=== PATIENT | female | born 1965 | race Caucasian/White ===

== ENCOUNTER 2019-03-07 14:02 | Inpatient (IN) ==
--- NOTE | 2019-03-07 14:20 | Emergency Department Note ---
Disposition Clinical Impression: Colitis, PRESTON (acute kidney injury), Hypokalemia Disposition: Admitted As Inpatient Condition: Good Time of Disposition: 22:25 General Adult HPI - General Chief complaint: ED General Medical Stated complaint: "bladder spasms" Time Seen by Provider: 03/07/19 14:18 Source: patient Limitations: no limitations Nursing Notes Reviewed: Yes Vital Signs Reviewed: Yes - History of Present Illness HPI Narrative: 53-year-old female past medical history of opiate addiction, withdrawal, m ultiple UTIs presenting for 2 days of dark colored urine, and bladder spasms. Patient states she has been feeling poorly since Thursday last night developed dark colored urine with bladder spasms beginning this morning. Patient states the past spasms are 10 out of 10 on the pain scale sharp and stabbing in nature, nonradiating. Patient states she has had no fevers chills, no chest pain or shortness of breath, no neck or back pain. No paresthesias no difficulty with ambulation. No other concerns or clicks at this time. Onset (ago): day(s) Pain Severity: severe Pain Scale: 10 Quality: stabbing, sharp Consistency: constant Associated symptoms: Reports: loss of appetite, malaise, nausea/vomiting Treatments Prior to Arrival: none - Related Data Home Medications Medication Instructions Recorded Confirmed Benztropine [Cogentin] 1 mg PO HS 02/09/16 03/05/19 Gabapentin [Neurontin] 800 mg PO QID 02/09/16 03/05/19 Pantoprazole Sodium [Protonix] 40 mg PO DAILY 02/09/16 03/05/19 Paroxetine [Paxil] 20 mg PO DAILY 02/09/16 03/05/19 Quetiapine Fumarate [Seroquel] 600 mg PO HS 02/09/16 03/05/19 cloNIDine HCl [CloNIDine HCl] 0.1 mg PO DAILY 02/09/16 03/05/19 Albuterol Sulfate [Proair Hfa] 2 puff IH Q6H PRN 11/29/16 03/05/19 Aspirin [Lo-Dose Aspirin EC] 81 mg PO DAILY 12/13/17 03/05/19 Buprenorphine HCl/Naloxone HCl 2 each SL DAILY 06/05/18 03/05/19 [Zubsolv 8.6-2.1 mg Tablet Sl] Previous Rx's Medication Instructions Recorded Sucralfate [Carafate] 1 gm PO QIDAC #40 tablet 09/04/18 Metaxalone [Skelaxin] 800 mg PO TID #12 tablet 12/14/18 Ondansetron ODT [Zofran ODT] 4 mg SL Q8HR #14 tab.rapdis 03/04/19 cephALEXin [Keflex] 500 mg PO QID #40 capsule 03/05/19 Allergies Allergy/AdvReac Type Severity Reaction Status Date / Time nalbuphine [From Nubain] Allergy Severe Difficulty Verified 12/13/18 15:18 Breathing Amoxicillin Allergy Hives Verified 12/13/18 15:18 butorphanol [From Stadol] Allergy Difficulty Verified 12/13/18 15:18 Breathing Hyoscyamine [From Levsin] Allergy Difficulty Verified 12/13/18 15:18 Breathing ibuprofen Allergy Difficulty Verified 12/13/18 15:18 Breathing ketorolac [From Toradol] Allergy Difficulty Verified 12/13/18 15:18 Breathing lamotrigine [From Lamictal] Allergy Difficulty Verified 12/13/18 15:18 Breathing meperidine [From Demerol] Allergy Difficulty Verified 12/13/18 15:18 Breathing Review of Systems: *See History of Present Illness for more detail Constitutional: Denies: fever, chills Cardiovascular: Denies: chest pain Respiratory: Denies: dyspnea, cough, hemoptysis Gastrointestinal: Admits to abdominal pain and nausea. Denies: vomiting, diarrhea, constipation, hematemesis, melena, hematochezia Genitourinary: Admits to dark colored urine Musculoskeletal: Denies: back pain, neck pain Integumentary: Denies: rash Neurological: Admits to weakness, generalized malaise and lightheadedness. Denies: headache, numbness, paresthesias, difficulty with ambulation. Endocrine: Admits: fatigue All systems ED: reviewed and negative except as stated. 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 Anterior neck is supple without swe lling. *Chest: Symmetric chest wall rise *Heart: Cardiac rhythm and rate are regular with S1 and S2 , no S3 or S4 appreciated, no murmurs, gallops, rubs, or clicks. *Lungs: Lungs are clear to auscultation bilaterally, without accessory muscle use or prolonged expiratory phase. No wheezes, rhonchi or stridor appreciated. Abdomen: Patient's abdomen is exquisitely and diffusely tender to palpation patient is voluntarily guarding. Extremities: Normal capillary refill without evidence of pedal edema, joint swelling or erythema. Pulses/motor intact in all 4 extremities. Psychiatric exam: Patient displays a normal affect and mood for the environment. No overt signs of hallucination. Integumentary: warm, dry, intact, normal color. No rash, cyanosis, diaphoresis, erythema, or pallor - General Limitations: no limitations General appearance: alert, in no apparent distress Course Course Narrative: CT scan abdomen and pelvis, abdominal labs, urinalysis Zofran and Dilaudid and IV fluids for management of patient discomfort. - Reevaluation(s) Reevaluation #1: Patient found to have colitis on CT scan imaging rule out metronidazole on top of the Keflex the patient has been at home for UTI for further coverage. We will re-dose hydromorphone as needed. Vital Signs Temperature 98.2 F 03/07/19 14:07 Pulse Rate 111 03/07/19 14:07 Respiratory Rate 16 03/07/19 14:07 Blood Pressure 109/72 03/07/19 14:07 O2 Sat by Pulse Oximetry 93 03/07/19 14:07 Temperature 99.2 F 03/07/19 20:06 Pulse Rate 77 03/07/19 20:06 Respiratory Rate 17 03/07/19 20:06 Blood Pressure 139/79 03/07/19 20:06 O2 Sat by Pulse Oximetry 93 03/07/19 20:06 Oxygen Delivery Oxygen Delivery Room Air Medical Decision Making - MDM Narrative Medical decision making narrative: Patient with colitis on CT imaging as well as acute kidney injury on laboratory analysis. Otherwise unremarkable workup. Patient be [facility] medicine [facility] for further evaluation and management. Patient and at bedside verbalizes her understanding and agreement with this plan. Patient's hemodynamics were stable time of admission. - Lab Data Lab results reviewed: Yes I reviewed the patient's lab results. Result diagrams: 03/07/19 14:55 03/07/19 14:55 Lab Results 03/07/19 03/07/19 03/07/19 Range/Units 14:55 14:55 15:21 WBC 10.1 (4.3-11.1) K/mcL RBC 5.08 H (3.82-4.97) M/mcL Hgb 15.8 H (11.5-15.4) g/dL Hct 48.5 H (35.3-44.9) % MCV 95.5 (83.0-100.0) fL MCH 31.1 (28.0-33.3) pg MCHC 32.6 (31.6-35.5) g/dL RDW 13.4 (11.5-14.5) % Plt Count 331 (140-400) K/mcL MPV 9.3 L (9.4-12.4) fL Immature Gran % 0.3 (0-4) % Seg Neutrophils % 66.5 % Lymphocytes % 17.7 % Monocytes % 13.8 % Eosinophils % 1.1 % Basophils % 0.6 % Neutrophils # 6.8 (1.6-8.9) K/mcL Lymphocytes # 1.8 (0.6-4.6) K/mcL Monocytes # 1.4 H (0.0-1.3) K/mcL Eosinophils # 0.1 (0.0-0.6) K/mcL Basophils # 0.1 (0.0-0.2) K/mcL Sodium 140 (136-145) mEq/L Potassium 3.1 L (3.5-5.1) mEq/L Chloride 104 (98-107) mEq/L Carbon Dioxide 24 (23-29) mEq/L BUN 18 (6-20) mg/dL Creatinine 1.79 H (0.60-1.20) mg/dL Est GFR ( Amer) 36 L (> 60) Est GFR (Non-Af Amer) 30 L (> 60) BUN/Creatinine Ratio 10 (6-26) Glucose 109 H (70-105) mg/dL Calculated Osmolality 292 (280-300) Lactic Acid (0.5-2.2) mmol/L Calcium 9.3 (8.6-10.3) mg/dL Magnesium 1.9 (1.6-2.6) mg/dL Total Bilirubin 0.3 (0.3-1.0) mg/dL Direct Bilirubin 0.1 (0.0-0.2) mg/dL Indirect Bilirubin 0.2 (0.0-1.2) mg/dL AST 17 (13-39) Units/L ALT 9 (7-52) Units/L Alkaline Phosphatase 141 H (34-104) Units/L Lactate Dehydrogenase 200 (140-271) Units/L Creatine Kinase 22 L (30-223) Units/L Serum Total Protein 6.5 (6.4-8.9) g/dL Albumin 3.8 (3.5-5.7) g/dL Globulin 2.7 (2.4-3.5) g/dL Albumin/Globulin Ratio 1.4 (1.1-2.2) Lipase 7 L (11-82) Units/L Urine Color [place] A (Yellow) Urine Clarity Cloudy A (Clear) Urine pH TNP Ur Specific [place] TNP Urine Protein TNP Urine Glucose (UA) TNP Urine Ketones TNP Urine Blood TNP Urine Nitrite TNP Urine Bilirubin TNP Urine Urobilinogen TNP Ur Leukocyte Esterase TNP Urine Microscopic RBC TNTC H (0-3) per hpf Urine Microscopic WBC 5-15 H (0-3) per hpf Ur Squamous Epith Cells Few (None-Few) per lpf Urine Bacteria Few (None-Few) per hpf Urine Yeast Many H (None Seen) per hpf Ur Culture Indicated? YES A (NO) Urine Osmolality (300-1090) mOsm/kg Urine Sodium mEq/L Urine Potassium mEq/L Urine Chloride mEq/L Urine Opiates Screen (Hdytmk=555) ng/mL Ur Buprenorphine Scrn (Cutoff=5) ng/mL Ur Barbiturates Screen (Aqbtye=098) ng/mL Ur Phencyclidine Scrn (Cutoff=25) ng/mL Ur Amphetamines Screen (Owktpt=5548) ng/mL U Benzodiazepines Scrn (Hhchaz=421) ng/mL Urine Cocaine Screen (Cutoff= 300) ng/mL U Marijuana (THC) Screen (Cutoff = 50) ng/mL Ur Drug Screen Interp 03/07/19 03/07/19 03/07/19 Range/Units 15:21 15:21 15:21 WBC (4.3-11.1) K/mcL RBC (3.82-4.97) M/mcL Hgb (11.5-15.4) g/dL Hct (35.3-44.9) % MCV (83.0-100.0) fL MCH (28.0-33.3) pg MCHC (31.6-35.5) g/dL RDW (11.5-14.5) % Plt Count (140-400) K/mcL MPV (9.4-12.4) fL Immature Gran % (0-4) % Seg Neutrophils % % Lymphocytes % % Monocytes % % Eosinophils % % Basophils % % Neutrophils # (1.6-8.9) K/mcL Lymphocytes # (0.6-4.6) K/mcL Monocytes # (0.0-1.3) K/mcL Eosinophils # (0.0-0.6) K/mcL Basophils # (0.0-0.2) K/mcL Sodium (136-145) mEq/L Potassium (3.5-5.1) mEq/L Chloride (98-107) mEq/L Carbon Dioxide (23-29) mEq/L BUN (6-20) mg/dL Creatinine (0.60-1.20) mg/dL Est GFR ( Amer) (> 60) Est GFR (Non-Af Amer) (> 60) BUN/Creatinine Ratio (6-26) Glucose (70-105) mg/dL Calculated Osmolality (280-300) Lactic Acid (0.5-2.2) mmol/L Calcium (8.6-10.3) mg/dL Magnesium (1.6-2.6) mg/dL Total Bilirubin (0.3-1.0) mg/dL Direct Bilirubin (0.0-0.2) mg/dL Indirect Bilirubin (0.0-1.2) mg/dL AST (13-39) Units/L ALT (7-52) Units/L Alkaline Phosphatase (34-104) Units/L Lactate Dehydrogenase (140-271) Units/L Creatine Kinase (30-223) Units/L Serum Total Protein (6.4-8.9) g/dL Albumin (3.5-5.7) g/dL Globulin (2.4-3.5) g/dL Albumin/Globulin Ratio (1.1-2.2) Lipase (11-82) Units/L Urine Color (Yellow) Urine Clarity (Clear) Urine pH Ur Specific [place] Urine Protein Urine Glucose (UA) Urine Ketones Urine Blood Urine Nitrite Urine Bilirubin Urine Urobilinogen Ur Leukocyte Esterase Urine Microscopic RBC (0-3) per hpf Urine Microscopic WBC (0-3) per hpf Ur Squamous Epith Cells (None-Few) per lpf Urine Bacteria (None-Few) per hpf Urine Yeast (None Seen) per hpf Ur Culture Indicated? (NO) Urine Osmolality 310 (300-1090) mOsm/kg Urine Sodium 55.3 mEq/L Urine Potassium 37.3 mEq/L Urine Chloride 49 mEq/L Urine Opiates Screen Positive H (Afmtjz=080) ng/mL Ur Buprenorphine Scrn Positive H (Cutoff=5) ng/mL Ur Barbiturates Screen Negative (Fwipai=197) ng/mL Ur Phencyclidine Scrn Negative (Cutoff=25) ng/mL Ur Amphetamines Screen Negative (Bodsws=7349) ng/mL U Benzodiazepines Scrn Negative (Ihhsgz=404) ng/mL Urine Cocaine Screen Negative (Cutoff= 300) ng/mL U Marijuana (THC) Screen Negative (Cutoff = 50) ng/mL Ur Drug Screen Interp See Below 03/07/19 Range/Units 16:40 WBC (4.3-11.1) K/mcL RBC (3.82-4.97) M/mcL Hgb (11.5-15.4) g/dL Hct (35.3-44.9) % MCV (83.0-100.0) fL MCH (28.0-33.3) pg MCHC (31.6-35.5) g/dL RDW (11.5-14.5) % Plt Count (140-400) K/mcL MPV (9.4-12.4) fL Immature Gran % (0-4) % Seg Neutrophils % % Lymphocytes % % Monocytes % % Eosinophils % % Basophils % % Neutrophils # (1.6-8.9) K/mcL Lymphocytes # (0.6-4.6) K/mcL Monocytes # (0.0-1.3) K/mcL Eosinophils # (0.0-0.6) K/mcL Basophils # (0.0-0.2) K/mcL Sodium (136-145) mEq/L Potassium (3.5-5.1) mEq/L Chloride (98-107) mEq/L Carbon Dioxide (23-29) mEq/L BUN (6-20) mg/dL Creatinine (0.60-1.20) mg/dL Est GFR ( Amer) (> 60) Est GFR (Non-Af Amer) (> 60) BUN/Creatinine Ratio (6-26) Glucose (70-105) mg/dL Calculated Osmolality (280-300) Lactic Acid 1.0 (0.5-2.2) mmol/L Calcium (8.6-10.3) mg/dL Magnesium (1.6-2.6) mg/dL Total Bilirubin (0.3-1.0) mg/dL Direct Bilirubin (0.0-0.2) mg/dL Indirect Bilirubin (0.0-1.2) mg/dL AST (13-39) Units/L ALT (7-52) Units/L Alkaline Phosphatase (34-104) Units/L Lactate Dehydrogenase (140-271) Units/L Creatine Kinase (30-223) Units/L Serum Total Protein (6.4-8.9) g/dL Albumin (3.5-5.7) g/dL Globulin (2.4-3.5) g/dL Albumin/Globulin Ratio (1.1-2.2) Lipase (11-82) Units/L Urine Color (Yellow) Urine Clarity (Clear) Urine pH Ur Specific [place] Urine Protein Urine Glucose (UA) Urine Ketones Urine Blood Urine Nitrite Urine Bilirubin Urine Urobilinogen Ur Leukocyte Esterase Urine Microscopic RBC (0-3) per hpf Urine Microscopic WBC (0-3) per hpf Ur Squamous Epith Cells (None-Few) per lpf Urine Bacteria (None-Few) per hpf Urine Yeast (None Seen) per hpf Ur Culture Indicated? (NO) Urine Osmolality (300-1090) mOsm/kg Urine Sodium mEq/L Urine Potassium mEq/L Urine Chloride mEq/L Urine Opiates Screen (Kjtgsw=144) ng/mL Ur Buprenorphine Scrn (Cutoff=5) ng/mL Ur Barbiturates Screen (Wmsujy=599) ng/mL Ur Phencyclidine Scrn (Cutoff=25) ng/mL Ur Amphetamines Screen (Nkgskr=9673) ng/mL U Benzodiazepines Scrn (Icfbrs=219) ng/mL Urine Cocaine Screen (Cutoff= 300) ng/mL U Marijuana (THC) Screen (Cutoff = 50) ng/mL Ur Drug Screen Interp - Radiology Data Radiology results reviewed: Yes I reviewed the patient's radiology results. Abdomen/Pelvis CT 03/07/19 14:41 IMPRESSION: Mild circumferential wall thickening within the proximal 2/3 of the colon-new over the past 3 days. Mild infectious or inflammatory colitis might be considered clinically. Few mild to moderately distended loops of proximal small bowel within the left upper quadrant with some air-fluid level but no wall thickening. This could represent nonobstructive ileus or enteritis. D/ / Ac Santiago MD / Ac Santiago MD Interpreting Provider: Ac Santiago MD - EKG Data EKG #1 EKG attestation: Yes I reviewed and interpreted this EKG. EKG results narrative: Patient EKG shows sinus rhythm with a heart of 70 bpm, MN interval 169 ms, QR scientologist of 86 ms, QT/QTc interval 398/454 ms respectively. There are no significant ST segment elevations, depressions, pathologic Q waves, abnormal T- wave inversions, nor any other signs of acute ischemic change. EKG performed today is generally consistent with prior EKG performed on 11/09/2018.
[2019-03-07] MEDS ORDERED: Ondansetron 4 MG/2 ML VIAL IVP STA (14:44)
[2019-03-07] MEDS ORDERED: 0.9 % Sodium Chloride 1,000 ML IVC ONE (14:45)
[2019-03-07] MEDS ORDERED: *HR* HYDROmorphone (PF) 1 MG/ML SYRINGE IVP ONE ×2 (14:45→16:40)
[2019-03-07 15:34] LABS: Basophils # 0.1 K/mcL (0.0-0.2); Basophils % 0.6 %; Eosinophils # 0.1 K/mcL (0.0-0.6); Eosinophils % 1.1 %; Hematocrit 48.5 % (35.3-44.9); Hemoglobin 15.8 g/dL (11.5-15.4); Immature Granulocytes % 0.3 % (0-4); Lymphocytes # 1.8 K/mcL (0.6-4.6); Lymphocytes % 17.7 %; Mean Corpuscular HGB Conc 32.6 g/dL (31.6-35.5); Mean Corpuscular Hemoglobin 31.1 pg (28.0-33.3); Mean Corpuscular Volume 95.5 fL (83.0-100.0); Mean Platelet Volume 9.3 fL (9.4-12.4); Monocytes # 1.4 K/mcL (0.0-1.3); Monocytes % 13.8 %; Neutrophils # 6.8 K/mcL (1.6-8.9); Platelet Count 331 K/mcL (140-400); Red Blood Count 5.08 M/mcL (3.82-4.97); Red Cell Distribution Width 13.4 % (11.5-14.5); Segmented Neutrophils % 66.5 %; White Blood Count 10.1 K/mcL (4.3-11.1)
[2019-03-07 16:05] LABS: Albumin 3.8 g/dL (3.5-5.7); Albumin/Globulin Ratio 1.4 (1.1-2.2); Bilirubin,Direct 0.1 mg/dL (0.0-0.2); Bilirubin,Indirect 0.2 mg/dL (0.0-1.2); Bilirubin,Total 0.3 mg/dL (0.3-1.0); Calcium 9.3 mg/dL (8.6-10.3); Globulin 2.7 g/dL (2.4-3.5); Potassium 3.1 mEq/L (3.5-5.1); Total Protein 6.5 g/dL (6.4-8.9)
[2019-03-07] MEDS ORDERED: MetroNIDAZOLE 500 MG/100 ML 500 MG/100 ML BAG IVPB ONE (16:26)
[2019-03-07 16:59] LABS: Clarity,Urine Cloudy (Clear)
[2019-03-07 17:01] LABS: Color,Urine Orange (Yellow)
[2019-03-07 17:03] LABS: RBC,Urine TNTC per hpf (0-3)
[2019-03-07 17:04] LABS: Bacteria,Urine Few per hpf (None-Few); Squamous Epithelial Cell,Urine Few per lpf (None-Few); Yeast,Urine Many per hpf (None Seen)
[2019-03-07] MEDS ORDERED: Naloxone 0.4 MG/ML INJ IVP PRN ×2 (17:38→18:01)
--- NOTE | 2019-03-07 18:02 | Emergency Department Note ---
Disposition Clinical Impression: Colitis, PRESTON (acute kidney injury), Hypokalemia Disposition: Admitted As Inpatient Condition: Good Forms: ED Satisfaction Letter, Work/School Release Time of Disposition: 18:01 General Adult HPI - General Chief complaint: ED General Medical Stated complaint: "bladder spasms" Time Seen by Provider: 03/07/19 14:18 Source: patient Limitations: no limitations - History of Present Illness Pain Scale: 0 - Related Data Home Medications Medication Instructions Recorded Confirmed Benztropine [Cogentin] 1 mg PO HS 02/09/16 03/05/19 Gabapentin [Neurontin] 800 mg PO QID 02/09/16 03/05/19 Pantoprazole Sodium [Protonix] 40 mg PO DAILY 02/09/16 03/05/19 Paroxetine [Paxil] 20 mg PO DAILY 02/09/16 03/05/19 Quetiapine Fumarate [Seroquel] 600 mg PO HS 02/09/16 03/05/19 cloNIDine HCl [CloNIDine HCl] 0.1 mg PO DAILY 02/09/16 03/05/19 Albuterol Sulfate [Proair Hfa] 2 puff IH Q6H PRN 11/29/16 03/05/19 Aspirin [Lo-Dose Aspirin EC] 81 mg PO DAILY 12/13/17 03/05/19 Buprenorphine HCl/Naloxone HCl 2 each SL DAILY 06/05/18 03/05/19 [Zubsolv 8.6-2.1 mg Tablet Sl] Previous Rx's Medication Instructions Recorded Sucralfate [Carafate] 1 gm PO QIDAC #40 tablet 09/04/18 Metaxalone [Skelaxin] 800 mg PO TID #12 tablet 12/14/18 Ondansetron ODT [Zofran ODT] 4 mg SL Q8HR #14 tab.rapdis 03/04/19 cephALEXin [Keflex] 500 mg PO QID #40 capsule 03/05/19 Allergies Allergy/AdvReac Type Severity Reaction Status Date / Time nalbuphine [From Nubain] Allergy Severe Difficulty Verified 12/13/18 15:18 Breathing Amoxicillin Allergy Hives Verified 12/13/18 15:18 butorphanol [From Stadol] Allergy Difficulty Verified 12/13/18 15:18 Breathing Hyoscyamine [From Levsin] Allergy Difficulty Verified 12/13/18 15:18 Breathing ibuprofen Allergy Difficulty Verified 12/13/18 15:18 Breathing ketorolac [From Toradol] Allergy Difficulty Verified 12/13/18 15:18 Breathing lamotrigine [From Lamictal] Allergy Difficulty Verified 12/13/18 15:18 Breathing meperidine [From Demerol] Allergy Difficulty Verified 12/13/18 15:18 Breathing Past Medical History - Past Medical History Medical history: Reports: arthritis, asthma, GERD, GI bleed, migraine Surgical history: Reports: cholecystectomy, herniorrhaphy, knee replacement, other Psychiatric history: Reports: anxiety, depression, other EVP GENERAL COUNSEL history: Reports: no EVP GENERAL COUNSEL history - Social History Smoking Status: Current every day smoker Smokeless Tobacco Status: No Alcohol use: Reports: none Drug use: Reports: none Physical Exam - General Limitations: no limitations General appearance: alert, in no apparent distress Course Vital Signs Temperature 98.2 F 03/07/19 14:07 Pulse Rate 111 03/07/19 14:07 Respiratory Rate 16 03/07/19 14:07 Blood Pressure 109/72 03/07/19 14:07 O2 Sat by Pulse Oximetry 93 03/07/19 14:07 Temperature 98.2 F 03/07/19 14:07 Pulse Rate 111 03/07/19 14:07 Respiratory Rate 16 03/07/19 14:07 Blood Pressure 109/72 03/07/19 14:07 O2 Sat by Pulse Oximetry 93 03/07/19 14:07 Oxygen Delivery Oxygen Delivery Room Air Medical Decision Making - Lab Data Result diagrams: 03/07/19 14:55 03/07/19 14:55 Lab Results 03/07/19 03/07/19 03/07/19 Range/Units 14:55 14:55 15:21 WBC 10.1 (4.3-11.1) K/mcL RBC 5.08 H (3.82-4.97) M/mcL Hgb 15.8 H (11.5-15.4) g/dL Hct 48.5 H (35.3-44.9) % MCV 95.5 (83.0-100.0) fL MCH 31.1 (28.0-33.3) pg MCHC 32.6 (31.6-35.5) g/dL RDW 13.4 (11.5-14.5) % Plt Count 331 (140-400) K/mcL MPV 9.3 L (9.4-12.4) fL Immature Gran % 0.3 (0-4) % Seg Neutrophils % 66.5 % Lymphocytes % 17.7 % Monocytes % 13.8 % Eosinophils % 1.1 % Basophils % 0.6 % Neutrophils # 6.8 (1.6-8.9) K/mcL Lymphocytes # 1.8 (0.6-4.6) K/mcL Monocytes # 1.4 H (0.0-1.3) K/mcL Eosinophils # 0.1 (0.0-0.6) K/mcL Basophils # 0.1 (0.0-0.2) K/mcL Sodium 140 (136-145) mEq/L Potassium 3.1 L (3.5-5.1) mEq/L Chloride 104 (98-107) mEq/L Carbon Dioxide 24 (23-29) mEq/L BUN 18 (6-20) mg/dL Creatinine 1.79 H (0.60-1.20) mg/dL Est GFR ( Amer) 36 L (> 60) Est GFR (Non-Af Amer) 30 L (> 60) BUN/Creatinine Ratio 10 (6-26) Glucose 109 H (70-105) mg/dL Calculated Osmolality 292 (280-300) Lactic Acid (0.5-2.2) mmol/L Calcium 9.3 (8.6-10.3) mg/dL Total Bilirubin 0.3 (0.3-1.0) mg/dL Direct Bilirubin 0.1 (0.0-0.2) mg/dL Indirect Bilirubin 0.2 (0.0-1.2) mg/dL AST 17 (13-39) Units/L ALT 9 (7-52) Units/L Alkaline Phosphatase 141 H (34-104) Units/L Serum Total Protein 6.5 (6.4-8.9) g/dL Albumin 3.8 (3.5-5.7) g/dL Globulin 2.7 (2.4-3.5) g/dL Albumin/Globulin Ratio 1.4 (1.1-2.2) Lipase 7 L (11-82) Units/L Urine Color [place] A (Yellow) Urine Clarity Cloudy A (Clear) Urine pH TNP Ur Specific [place] TNP Urine Protein TNP Urine Glucose (UA) TNP Urine Ketones TNP Urine Blood TNP Urine Nitrite TNP Urine Bilirubin TNP Urine Urobilinogen TNP Ur Leukocyte Esterase TNP Urine Microscopic RBC TNTC H (0-3) per hpf Urine Microscopic WBC 5-15 H (0-3) per hpf Ur Squamous Epith Cells Few (None-Few) per lpf Urine Bacteria Few (None-Few) per hpf Urine Yeast Many H (None Seen) per hpf Ur Culture Indicated? YES A (NO) 03/07/19 Range/Units 16:40 WBC (4.3-11.1) K/mcL RBC (3.82-4.97) M/mcL Hgb (11.5-15.4) g/dL Hct (35.3-44.9) % MCV (83.0-100.0) fL MCH (28.0-33.3) pg MCHC (31.6-35.5) g/dL RDW (11.5-14.5) % Plt Count (140-400) K/mcL MPV (9.4-12.4) fL Immature Gran % (0-4) % Seg Neutrophils % % Lymphocytes % % Monocytes % % Eosinophils % % Basophils % % Neutrophils # (1.6-8.9) K/mcL Lymphocytes # (0.6-4.6) K/mcL Monocytes # (0.0-1.3) K/mcL Eosinophils # (0.0-0.6) K/mcL Basophils # (0.0-0.2) K/mcL Sodium (136-145) mEq/L Potassium (3.5-5.1) mEq/L Chloride (98-107) mEq/L Carbon Dioxide (23-29) mEq/L BUN (6-20) mg/dL Creatinine (0.60-1.20) mg/dL Est GFR ( Amer) (> 60) Est GFR (Non-Af Amer) (> 60) BUN/Creatinine Ratio (6-26) Glucose (70-105) mg/dL Calculated Osmolality (280-300) Lactic Acid 1.0 (0.5-2.2) mmol/L Calcium (8.6-10.3) mg/dL Total Bilirubin (0.3-1.0) mg/dL Direct Bilirubin (0.0-0.2) mg/dL Indirect Bilirubin (0.0-1.2) mg/dL AST (13-39) Units/L ALT (7-52) Units/L Alkaline Phosphatase (34-104) Units/L Serum Total Protein (6.4-8.9) g/dL Albumin (3.5-5.7) g/dL Globulin (2.4-3.5) g/dL Albumin/Globulin Ratio (1.1-2.2) Lipase (11-82) Units/L Urine Color (Yellow) Urine Clarity (Clear) Urine pH Ur Specific [place] Urine Protein Urine Glucose (UA) Urine Ketones Urine Blood Urine Nitrite Urine Bilirubin Urine Urobilinogen Ur Leukocyte Esterase Urine Microscopic RBC (0-3) per hpf Urine Microscopic WBC (0-3) per hpf Ur Squamous Epith Cells (None-Few) per lpf Urine Bacteria (None-Few) per hpf Urine Yeast (None Seen) per hpf Ur Culture Indicated? (NO) Attestation Statement - Attestation Attestation: I reviewed the residents documentation and agree with the residents assessment and plan of care. I have personally had face to face time with the patient. (Brief History, Brief Exam, and MDM) I personally supervised and was present for the [place]/critical portions of the following procedures completed by the resident: (add procedures performed here). 53 year old female who returns to the ED from thursday for hemtruia and bladder spasms with abdominal pain and nausea. Samuel appears to have colitis on exam with new PRESTON and hypokalemia to 3.1. Dialudid for pain therapy had manged her pain but it has been freuqently given. shirlene/chele for therpay and admission to medicine. discussed case wit Dr. Boo and he accepts for admission.
--- NOTE | 2019-03-07 18:05 | Internal Med History&Physical ---
Date of Encounter: 03/07/19 Time of Encounter: 18:03 Internal Medicine - H&P: HPI Chief complaint: Abdominal pain Admitted From: Home Plans for Post Hospital Care: Home History of present illness: Ms. Boyce is a 53 year old female with history of GERD, previous opioid addiction, anxiety and depression presented to the emergency department with complaint of abdominal pain. As per patient she had visited the emergency department with similar symptoms 3 days ago and was found to have urinary retention along with urinary tract infection so she was sent home on oral antibiotics along with Frazier catheter. She reports that since then her urine has progressively become darker and bloodstained in addition her crampy a bdominal pain has worsened. She reports that her abdominal pain is located in the suprapubic area and it is tender to touch. She denies CVA tenderness, has had no recent abdominal trauma, she has never had any symptoms like this before. Her abdominal pain is unassociated with nausea, vomiting or diarrhea. Last bowel movement was earlier today and she reports that it was normal for her, brown in color no melena or hematochezia. She cannot recall alleviating or aggravating factors. On the emergency department she was found to have sammie hematuria, CT abdomen and pelvis was negative for any renal stones or obstruction or hydronephrosis. There was wall thickening within the proximal two thirds of the colon which was new over the past 3 days which is suspicious for colitis. There were a few mild to moderately distended loops of proximal small bowel within the left upper quadrant with some air-fluid levels which was concerning for nonobstructive ileus versus enteritis. She was endorsed for admission for above medical problems. Past Med Surg Social Fam HX - Past Medical History Medical history: arthritis, asthma, GERD, GI bleed, migraine Additional medical history: OPIOD ADDICTION Psychiatric history: anxiety, depression, other - Past Surgical History Surgical History: cholecystectomy, herniorrhaphy, knee replacement, other Additional surgical history: RIGHT KNEE SURGERY FOR TORN MINISCUS - Social History Smoking Status: Current every day smoker Smokeless Tobacco Status: No Alcohol use: none Drug use: none - Family History Mother Adopted: No Family Member Ethnicity: Non- Living Status: Still Living Hx Family Cardiac Disorders: Yes (HTN) Internal Medicine - H&P: Meds Benztropine [Cogentin] 1 mg PO HS 02/09/16 [History] Gabapentin [Neurontin] 800 mg PO QID 02/09/16 [History] Pantoprazole Sodium [Protonix] 40 mg PO DAILY 02/09/16 [History] Paroxetine [Paxil] 20 mg PO DAILY 02/09/16 [History] Quetiapine Fumarate [Seroquel] 600 mg PO HS 02/09/16 [History] cloNIDine HCl [CloNIDine HCl] 0.1 mg PO DAILY 02/09/16 [History] Albuterol Sulfate [Proair Hfa] 2 puff IH Q6H PRN 11/29/16 [History] Aspirin [Lo-Dose Aspirin EC] 81 mg PO DAILY 12/13/17 [History] Buprenorphine HCl/Naloxone HCl [Zubsolv 8.6-2.1 mg Tablet Sl] 2 each SL DAILY 06/05/18 [History] Sucralfate [Carafate] 1 gm PO QIDAC #40 tablet 09/04/18 [Rx] Metaxalone [Skelaxin] 800 mg PO TID #12 tablet 12/14/18 [Rx] Ondansetron ODT [Zofran ODT] 4 mg SL Q8HR #14 tab.rapdis 03/04/19 [Rx] cephALEXin [Keflex] 500 mg PO QID #40 capsule 03/05/19 [Rx] Allergy/AdvReac Type Severity Reaction Status Date / Time nalbuphine [From Nubain] Allergy Severe Difficulty Verified 12/13/18 15:18 Breathing Amoxicillin Allergy Hives Verified 12/13/18 15:18 butorphanol [From Stadol] Allergy Difficulty Verified 12/13/18 15:18 Breathing Hyoscyamine [From Levsin] Allergy Difficulty Verified 12/13/18 15:18 Breathing ibuprofen Allergy Difficulty Verified 12/13/18 15:18 Breathing ketorolac [From Toradol] Allergy Difficulty Verified 12/13/18 15:18 Breathing lamotrigine [From Lamictal] Allergy Difficulty Verified 12/13/18 15:18 Breathing meperidine [From Demerol] Allergy Difficulty Verified 12/13/18 15:18 Breathing All Systems PM: A 10-system review of systems was performed and is negative for pertinent findings except as documented above in the HPI. - Constitutional Vitals: Temp Pulse Resp BP Pulse Ox 98.2 F 111 16 109/72 93 03/07/19 14:07 03/07/19 14:07 03/07/19 14:07 03/07/19 14:07 03/07/19 14:07 Exam: General: Patient is alert, oriented, no acute distress, Head: atraumatic, normocephalic, Eye: normal appearance, PERRL, no scleral icterus, no conjunctival injection ENT: mucous membranes moist, normal external ear exam Neck: normal inspection, trachea midline, full ROM, no carotid bruits Chest: normal inspection, symmetric chest rise Respiratory: Good respiratory effort. Bilateral breath sounds are clear without wheezing, crackles, or rhonchi. Cardiovascular: Regular rate and rhythm. s1 and s2 No clicks, rubs, gallops, or murmors. Abdomen: Bowel sounds present normoactive x-4 quadrants. Mildly tender in the suprapubic region, no CVA tenderness, no rebound. musculoskeletal: Spontaneously moving all extremities. no edema, no calf tenderness Skin: warm, dry, intact. Neuro: Alert and oriented x3 no focal deficit Psych: Patient's affect is normal Frazier catheter in place with sammie hematuria Internal Med - H&P Results - Labs CBC & Chem 7: 03/07/19 14:55 03/07/19 14:55 Labs: Short CBC 03/07/19 Range/Units 14:55 WBC 10.1 (4.3-11.1) K/mcL Hgb 15.8 H (11.5-15.4) g/dL Hct 48.5 H (35.3-44.9) % Plt Count 331 (140-400) K/mcL Neutrophils # 6.8 (1.6-8.9) K/mcL BMP 03/07/19 14:55 Sodium 140 Potassium 3.1 L Chloride 104 Carbon Dioxide 24 BUN 18 Creatinine 1.79 H Glucose 109 H Calcium 9.3 Liver Function 03/07/19 Range/Units 14:55 Total Bilirubin 0.3 (0.3-1.0) mg/dL Direct Bilirubin 0.1 (0.0-0.2) mg/dL AST 17 (13-39) Units/L ALT 9 (7-52) Units/L Alkaline Phosphatase 141 H (34-104) Units/L Albumin 3.8 (3.5-5.7) g/dL Urine 03/07/19 Range/Units 15:21 Urine Color [place] A (Yellow) Urine Clarity Cloudy A (Clear) Urine pH TNP Ur Specific [place] TNP Urine Protein TNP Urine Glucose (UA) TNP - Impressions ITS Impressions Abdomen/Pelvis CT 03/07/19 14:41 IMPRESSION: Mild circumferential wall thickening within the proximal 2/3 of the colon-new over the past 3 days. Mild infectious or inflammatory colitis might be considered clinically. Few mild to moderately distended loops of proximal small bowel within the left upper quadrant with some air-fluid level but no wall thickening. This could represent nonobstructive ileus or enteritis. D/ / Ac Santiago MD / Ac Santiago MD Interpreting Provider: Ac Santiago MD - Assessment and Plan (1) Colitis Current Visit: Yes Status: Acute Assessment and plan: admission EKG stat to evaluate QT stool panel cipro and flagyl NPO IVF LDH stat lactic Acid- 1 Monitor and correct electrolytes pain control Ct A/p IMPRESSION: Mild circumferential wall thickening within the proximal 2/3 of the colon-new over the past 3 days. Mild infectious or inflammatory colitis might be considered clinically. Few mild to moderately distended loops of proximal small bowel within the left upper quadrant with some air-fluid level but no wall thickening. This could represent nonobstructive ileus or enteritis. (2) PRESTON (acute kidney injury) Current Visit: Yes Status: Acute Assessment and plan: ? secondary to urinary retention S/P frazier placement 3 days ago in the ED vs medication induced vs glomerulonephritis vs doubt HUS (has evidence of colitis but no diarrhea) has hematuria - Ct A/p without evidence of stone or hydronephrosis continue with Iv hydration CBI ordered - nursing staff aware check urine casts, urine eosinophils methanol, ethelyne glycol ANCA, MARY, hepatitis panel, antistreptolysin, complements, urine cytology strict i/O continue to monitor renal functions avoid nephrotoxic medications urology and nephrology consulted will follow recommendations (3) Hematuria Current Visit: Yes Status: Acute Assessment and plan: management as above Avoid NSAIDS, anticoagulation and antiplatelets Qualifiers: Hematuria type: asymptomatic microscopic Qualified Code(s): R31.21 - Asymptomatic microscopic hematuria (4) Hypokalemia Current Visit: Yes Status: Acute Assessment and plan: was replaced magnesium ordered (5) Urinary retention Current Visit: No Status: Acute Assessment and plan: management as above (6) Urinary tract infection Current Visit: No Status: Acute Assessment and plan: on ciprofloxacin urine cx - gram negative coleman from 3 days ago follow urine cx Qualifiers: Urinary tract infection type: acute cystitis Hematuria presence: with hematuria Qualified Code(s): N30.01 - Acute cystitis with hematuria (7) Anxiety Current Visit: Yes Status: Acute Assessment and plan: continue home medications once verified (8) DVT prophylaxis Current Visit: Yes Status: Acute Assessment and plan: Scds - Time Spent With Patient Total time spent is greater than 50% in coordination of care (as documented) at patient's floor/unit and/or counseling patient: Greater than 35 minutes
[2019-03-07] MEDS ORDERED: Ipratropium/Albuterol Neb 3 ML IH PRN (18:08)
[2019-03-07 18:25] LABS: Magnesium 1.9 mg/dL (1.6-2.6)
[2019-03-07 18:33] LABS: Potassium,Urine 37.3 mEq/L; Sodium, Urine 55.3 mEq/L
[2019-03-07 18:44] LABS: Amphetamine Screen,Urine Negative ng/mL (Cutoff=1000); Barbiturate Screen,Urine Negative ng/mL (Cutoff=200); Benzodiazepines Screen,Urine Negative ng/mL (Cutoff=200); Cannabinoid Screen,Urine Negative ng/mL (Cutoff = 50); Cocaine Screen,Urine Negative ng/mL (Cutoff= 300); Opiate Screen,Urine Positive ng/mL (Cutoff=300); Phencyclidine Screen,Urine Negative ng/mL (Cutoff=25)
[2019-03-07 19:17] LABS: Complement C3 150 mg/dL (87-200)
[2019-03-07 19:36] LABS: Hepatitis B Surface Antibody 3.48 mIU/mL; Hepatitis B Surface Antigen Nonreactive (Nonreactive)
[2019-03-07 20:05] LABS: Hepatitis C Virus Antibody Nonreactive (Nonreactive)
[2019-03-07 20:06] LABS: Hepatitis A Antibody IgM Nonreactive (Nonreactive)
[2019-03-07 20:16] LABS: HIV-1&2 Antibody & p24 Ag Nonreactive (Nonreactive)
[2019-03-07] MEDS ORDERED: Acetaminophen IV 500 MG/50 ML INFUS..BTL IVPB ONE (20:34)
[2019-03-07] MEDS: 0.9 % Sodium Chloride 1,000 ML IVC SCH (21:37)
[2019-03-07] MEDS: Nicotine 14 MG PATCH.TD24 TD SCH (21:44)
[2019-03-07] MEDS: MetroNIDAZOLE 500 MG/100 ML 500 MG/100 ML BAG IVPB SCH (23:17)
[2019-03-08 00:09] LABS: Bilirubin,Urine Negative (Negative); Blood,Urine Moderate (Negative); Clarity,Urine Clear (Clear); Color,Urine Orange (Yellow); Glucose,Urine (UA) Normal (Normal); Ketones,Urine Negative (Negative); Leukocyte Esterase,Urine Negative (Negative); Nitrite,Urine Positive (Negative); Protein,Urine Negative (Neg-Trace); Specific Gravity,Urine 1.013 (1.010-1.025); Urobilinogen,Urine Normal (Normal)
[2019-03-08 00:11] LABS: Bacteria,Urine None Seen per hpf (None-Few); Hyaline Casts,Urine None Seen per lpf (None-Few); RBC,Urine 15-30 per hpf (0-3); Squamous Epithelial Cell,Urine Few per lpf (None-Few); WBC,Urine 0-3 per hpf (0-3)
[2019-03-08 00:16] LABS: Protein/Creatinine Ratio,Urine 0.28 mg/mg (0.00-0.20)
[2019-03-08] MEDS ORDERED: Acetaminophen IV 500 MG/50 ML INFUS..BTL IVPB ONE (02:04)
[2019-03-08] MEDS: 0.9 % Sodium Chloride 1,000 ML IVC SCH ×2 (06:18→15:26)
[2019-03-08] MEDS ORDERED: Acetaminophen 325 MG TABLET PO PRN ×2 (08:05→08:16)
[2019-03-08] MEDS ORDERED: Acetaminophen 650 MG RECTAL SUPP RC PRN (08:05)
[2019-03-08] MEDS ORDERED: *HR* FentaNYL (PF) 100 MCG/2 ML VIAL IVP ONE (08:16)
[2019-03-08] MEDS: MetroNIDAZOLE 500 MG/100 ML 500 MG/100 ML BAG IVPB SCH ×2 (08:40→15:25)
[2019-03-08] MEDS: Nicotine 14 MG PATCH.TD24 TD SCH (08:41)
[2019-03-08 08:50] LABS: Basophils # 0.1 K/mcL (0.0-0.2); Basophils % 0.8 %; Eosinophils # 0.2 K/mcL (0.0-0.6); Eosinophils % 3.1 %; Hematocrit 40.5 % (35.3-44.9); Hemoglobin 13.1 g/dL (11.5-15.4); Immature Granulocytes % 0.1 % (0-4); Lymphocytes # 2.3 K/mcL (0.6-4.6); Lymphocytes % 31.2 %; Mean Corpuscular HGB Conc 32.3 g/dL (31.6-35.5); Mean Corpuscular Hemoglobin 32.3 pg (28.0-33.3); Mean Platelet Volume 9.3 fL (9.4-12.4); Monocytes % 13.3 %; Neutrophils # 3.8 K/mcL (1.6-8.9); Platelet Count 258 K/mcL (140-400); Red Blood Count 4.05 M/mcL (3.82-4.97); Red Cell Distribution Width 13.7 % (11.5-14.5); Segmented Neutrophils % 51.5 %; White Blood Count 7.3 K/mcL (4.3-11.1)
[2019-03-08 09:00] LABS: Prothrombin Time 11.1 Seconds (9.4-12.1)
[2019-03-08 09:02] LABS: Activated Partial Thrombo Time 39.9 Seconds (26.0-36.0)
[2019-03-08 09:20] LABS: Albumin 3.1 g/dL (3.5-5.7); Albumin/Globulin Ratio 1.4 (1.1-2.2); Bilirubin,Total 0.5 mg/dL (0.3-1.0); Calcium 8.6 mg/dL (8.6-10.3); Chol/HDL Ratio 6.3 (0-4.9); Globulin 2.2 g/dL (2.4-3.5); Magnesium 1.8 mg/dL (1.6-2.6); Phosphorous 4.9 mg/dL (2.7-4.5); Potassium 4.1 mEq/L (3.5-5.1); Total Protein 5.3 g/dL (6.4-8.9)
--- NOTE | 2019-03-08 09:51 | Urology - Consult Note ---
<Iwona Rosales N - Last Filed: 03/08/19 09:48> Date of Encounter: 03/08/19 Time of Encounter: 09:25 - Assessment and Plan (1) PRESTON (acute kidney injury) Current Visit: Yes Status: Acute Assessment and plan: Patient is a 53-year-old female who presents with acute kidney injury. Serum creatinine on 03/04/2019 is 0.59, and serum creatinine presently is 2.19. There is no obvious obstruction or hydronephrosis visualized on patient's CT scan. Davila catheter is indwelling and draining sufficiently. (2) Hematuria Current Visit: Yes Status: Acute Assessment and plan: Patient is a 53-year-old female who presents with gross hematuria. Patient has no prior history of gross hematuria, and she only noticed this after the urinary catheter was inserted. Hematuria appears to be resolved. CBI is in the off position. Patient will likely require an outpatient cystoscopy for complete evaluation. Qualifiers: Hematuria type: gross Qualified Code(s): R31.0 - Gross hematuria (3) Urinary retention Current Visit: Yes Status: Acute Assessment and plan: Patient is a 53-year-old female who presents the history of urinary retention. It is unclear as to if patient truly had urinary retention, because patient states she has no difficulty emptying her bladder. Patient reports at the time of the CT scan, she felt the urge to void was instructed to wait until after the scan was complete. Discussed continuing with indwelling Davila catheter for maximal drainage in the setting of possible retention and infection. Patient is in agreement. I will discuss possible Davila catheter removal with Dr. Anaya who will be in to reevaluate patient later today. (4) Urinary tract infection Current Visit: Yes Status: Acute Assessment and plan: Patient is a 53-year-old female who presents with a urinary tract infection. Pulmonary urine culture is positive for gram-negative rods. Vital signs are currently stable and afebrile. Patient is receiving IV Cipro. We will plan to await final culture and sensitivity report. Qualifiers: Urinary tract infection type: acute cystitis Hematuria presence: with hematuria Qualified Code(s): N30.01 - Acute cystitis with hematuria Urology CN:HPI Consult date: 03/08/19 Reason for consult Urology: Other (UTI, urinary retention, PRESTON) Requesting physician: Xenia Mehdinasab History of present illness: Patient is a 53-year-old female who presents with acute urinary retention, urinary tract infection and acute kidney injury. Patient was initially evaluated in the emergency department on 03/05/2019 at which time she was diagnosed with urinary retention, urinary tract infection and subsequently discharged with oral Keflex and an indwelling Davila catheter. Patient reports abdominal pain acutely worsened, she experienced gross hematuria in catheter tubing, and she represented to the emergency department on 03/07/2019 where she underwent a CT of the abdomen and pelvis suggestive of colitis. No renal calculi, ureteral calculi, obstruction or hydronephrosis identified by CT. CBI was initiated, and urine quickly cleared. Currently, patient is sitting upright in bed in no apparent distress, and she denies any fever, chills, or flank pain. Patient admits to continued suprapubic pain, and she wishes to have the catheter removed as soon as possible. Patient reports no prior history of urinary retention or gross hematuria, and she has never required an indwelling Davila catheter previously. Patient denies any known family history of malignancy. CBI is currently in the off position, and urine is transparent, clear yellow. Past Med Surg Social Fam HX - Past Medical History Medical history: arthritis, asthma, GERD, GI bleed, migraine Additional medical history: OPIOD ADDICTION Psychiatric history: anxiety, depression, other - Past Surgical History Surgical History: cholecystectomy, herniorrhaphy, knee replacement, other Additional surgical history: RIGHT KNEE SURGERY FOR TORN MINISCUS - Social History Smoking Status: Current every day smoker Smokeless Tobacco Status: No Alcohol use: none Drug use: none - Family History Mother Adopted: No Family Member Ethnicity: Non- Living Status: Still Living Hx Family Cardiac Disorders: Yes (HTN) Hx Family Respiratory Disorders: No Hx Family Cancer: Yes (grandfather unknown) Hx Family GI Disorders: No Hx Family Genitourinary Disorders: No Hx Family Endocrine Disorder: Yes (DM) Hx Family Musculoskeletal Disorders: No Hx Family Neuromuscular Disorders: No Hx Family Neurologic Disorders: No Hx Family HEENT Disorders: No Hx Family Autoimmune Disorders: No Hx Family Reproductive Disorders: No Hx Family Psychosocial Disorders: No Hx Family Medical Disorders: No Medications and Allergies Benztropine [Cogentin] 1 mg PO HS 02/09/16 [History] Gabapentin [Neurontin] 800 mg PO QID 02/09/16 [History] Pantoprazole Sodium [Protonix] 40 mg PO DAILY 02/09/16 [History] Paroxetine [Paxil] 20 mg PO DAILY 02/09/16 [History] Quetiapine Fumarate [Seroquel] 600 mg PO HS 02/09/16 [History] cloNIDine HCl [CloNIDine HCl] 0.1 mg PO DAILY 02/09/16 [History] Albuterol Sulfate [Proair Hfa] 2 puff IH Q6H PRN 11/29/16 [History] Aspirin [Lo-Dose Aspirin EC] 81 mg PO DAILY 12/13/17 [History] Buprenorphine HCl/Naloxone HCl [Zubsolv 8.6-2.1 mg Tablet Sl] 2 each SL DAILY 06/05/18 [History] Ondansetron ODT [Zofran ODT] 8 mg SL Q8HR 03/08/19 [History] Allergy/AdvReac Type Severity Reaction Status Date / Time nalbuphine [From Nubain] Allergy Severe Difficulty Verified 12/13/18 15:18 Breathing Amoxicillin Allergy Hives Verified 12/13/18 15:18 butorphanol [From Stadol] Allergy Difficulty Verified 12/13/18 15:18 Breathing Hyoscyamine [From Levsin] Allergy Difficulty Verified 12/13/18 15:18 Breathing ibuprofen Allergy Difficulty Verified 12/13/18 15:18 Breathing ketorolac [From Toradol] Allergy Difficulty Verified 12/13/18 15:18 Breathing lamotrigine [From Lamictal] Allergy Difficulty Verified 12/13/18 15:18 Breathing meperidine [From Demerol] Allergy Difficulty Verified 12/13/18 15:18 Breathing Review of Systems - Constitutional no chills, no fatigue, no fever(s) - EENT Nose, mouth and throat: no dizziness, no headache(s) - Cardiovascular no chest pain, no diaphoresis, no dyspnea - Respiratory no cough, no dyspnea - Gastrointestinal abdominal pain, no change in bowel habits, no nausea, no vomiting - Genitourinary Genitourinary: hematuria, no difficulty urinating, no dysuria, no flank pain, no urinary frequency, no urinary hesitancy, no urinary incontinence, no urinary urgency - Musculoskeletal no back pain, no muscle weakness - Integumentary no erythema, no rash - Neurological no confusion, no syncope - Hematologic/Lymphatic no easy bleeding, no easy bruising - Allergic/Immunologic no throat swelling, no wheezing Exam Initial Vital Signs Temp Pulse Resp BP Pulse Ox 98.2 F 111 16 109/72 93 03/07/19 14:07 03/07/19 14:07 03/07/19 14:07 03/07/19 14:03/07/19 14:07 - General physical appearance Present: no distress, no pain - Eyes Present: PERRL, normal ocular movement - ENT Present: normal nares, no hearing loss, no congestion - Neck Present: no masses, trachea midline, no lymphadenopathy - Respiratory Present: normal respiratory effort - Cardiovascular Cardiovascular exam IM: RRR - Abdomen Abdomen: Present: soft, non tender. Absent: distended - Genitourinary Present: other (Davila catheter indwelling and draining transparent, clear yellow urine) - Integumentary Present: no rash, no abnormal pigmentation - Neurologic Present: normal coordination - Musculoskeletal Present: other (Normal posture) Urology Results - Labs 03/08/19 08:19 03/08/19 08:19 Abnormal lab results RBC 5.08 M/mcL (3.82-4.97) H 03/07/19 14:55 Hgb 15.8 g/dL (11.5-15.4) H 03/07/19 14:55 Hct 48.5 % (35.3-44.9) H 03/07/19 14:55 MPV 9.3 fL (9.4-12.4) L 03/08/19 08:19 1.4 K/mcL (0.0-1.3) H 03/07/19 14:55 APTT 39.9 Seconds (26.0-36.0) H 03/08/19 08:19 Potassium 3.1 mEq/L (3.5-5.1) L 03/07/19 14:55 Chloride 110 mEq/L (98-107) H 03/08/19 08:19 2.19 mg/dL (0.60-1.20) H 03/08/19 08:19 Est GFR ( Amer) 28 (> 60) L 03/08/19 08:19 Est GFR (Non-Af Amer) 23 (> 60) L 03/08/19 08:19 Glucose 109 mg/dL (70-105) H 03/07/19 14:55 Phosphorus 4.9 mg/dL (2.7-4.5) H 03/08/19 08:19 115 Units/L (34-104) H 03/08/19 08:19 22 Units/L (30-223) L 03/07/19 14:55 5.3 g/dL (6.4-8.9) L 03/08/19 08:19 3.1 g/dL (3.5-5.7) L 03/08/19 08:19 2.2 g/dL (2.4-3.5) L 03/08/19 08:19 Triglycerides 156 mg/dL (< 150) H 03/08/19 08:19 Cholesterol 213 mg/dL (< 200) H 03/08/19 08:19 LDL Cholesterol, Calc 148 mg/dL (0-99) H 03/08/19 08:19 VLDL Cholesterol, Calc 31 mg/dL (< 31) H 03/08/19 08:19 34 mg/dL (40-59) L 03/08/19 08:19 6.3 (0-4.9) H 03/08/19 08:19 7 Units/L (11-82) L 03/07/19 14:55 [place] (Yellow) A 03/07/19 23:38 Cloudy (Clear) A 03/07/19 15:21 Moderate (Negative) H 03/07/19 23:38 Positive (Negative) A 03/07/19 23:38 15-30 per hpf (0-3) H 03/07/19 23:38 5-15 per hpf (0-3) H 03/07/19 15:21 Many per hpf (None Seen) H 03/07/19 15:21 Ur Culture Indicated? YES (NO) A 03/07/19 23:38 Protein/Creatinin Ratio 0.28 mg/mg (0.00-0.20) H 03/07/19 23:38 Positive ng/mL (Jprxnh=601) H 03/07/19 15:21 Ur Buprenorphine Scrn Positive ng/mL (Cutoff=5) H 03/07/19 15:21 Hep Bs Antibody 3.48 mIU/mL (10.00-) L 03/07/19 18:45 Diabetes panel 03/07/19 03/08/19 Range/Units 14:55 08:19 Sodium 140 143 (136-145) mEq/L Potassium 3.1 L 4.1 D (3.5-5.1) mEq/L Chloride 104 110 H (98-107) mEq/L Carbon Dioxide 24 25 (23-29) mEq/L BUN 18 18 (6-20) mg/dL Creatinine 1.79 H 2.19 H (0.60-1.20) mg/dL Glucose 109 H 79 (70-105) mg/dL Calcium 9.3 8.6 (8.6-10.3) mg/dL AST 17 16 (13-39) Units/L ALT 9 7 (7-52) Units/L Alkaline Phosphatase 141 H 115 H (34-104) Units/L Albumin 3.8 3.1 L (3.5-5.7) g/dL Triglycerides 156 H (< 150) mg/dL HDL Cholesterol 34 L (40-59) mg/dL Calcium panel 03/07/19 03/08/19 Range/Units 14:55 08:19 Calcium 9.3 8.6 (8.6-10.3) mg/dL Phosphorus 4.9 H (2.7-4.5) mg/dL Albumin 3.8 3.1 L (3.5-5.7) g/dL Pituitary panel 03/07/19 03/08/19 Range/Units 14:55 08:19 Sodium 140 143 (136-145) mEq/L Potassium 3.1 L 4.1 D (3.5-5.1) mEq/L Chloride 104 110 H (98-107) mEq/L Carbon Dioxide 24 25 (23-29) mEq/L BUN 18 18 (6-20) mg/dL Creatinine 1.79 H 2.19 H (0.60-1.20) mg/dL Glucose 109 H 79 (70-105) mg/dL Calcium 9.3 8.6 (8.6-10.3) mg/dL Adrenal panel 03/07/19 03/08/19 Range/Units 14:55 08:19 Sodium 140 143 (136-145) mEq/L Potassium 3.1 L 4.1 D (3.5-5.1) mEq/L Chloride 104 110 H (98-107) mEq/L Carbon Dioxide 24 25 (23-29) mEq/L BUN 18 18 (6-20) mg/dL Creatinine 1.79 H 2.19 H (0.60-1.20) mg/dL Glucose 109 H 79 (70-105) mg/dL Calcium 9.3 8.6 (8.6-10.3) mg/dL Total Bilirubin 0.3 0.5 (0.3-1.0) mg/dL AST 17 16 (13-39) Units/L ALT 9 7 (7-52) Units/L Alkaline Phosphatase 141 H 115 H (34-104) Units/L Albumin 3.8 3.1 L (3.5-5.7) g/dL All other labs normal. - Imaging CT scan - abdomen: report reviewed, image reviewed CT scan - pelvis: report reviewed, image reviewed Consult Discharge Plan - Plan Referrals: Tyesha Yeh, FLAME DEGREASER [Primary Care Provider] - <Antoni Anaya - Last Filed: 03/08/19 14:53> Date of Encounter: 03/08/19 - Assessment and Plan (1) Urinary retention Current Visit: Yes Status: Acute Assessment and plan: Patient seen and examined independently. History, review of systems and physical exam findings of PA verified. All pertinent imaging reviewed. I am in agreement with the assessment and plan as outlined by our Urologic Surgery [facility] Physician Patch WorkerConnie. Highly suspect history for urinary retention upon discussion with patient. Plan: Trial of void as soon as renal function begins to improve. (2) Hematuria Current Visit: Yes Status: Acute Assessment and plan: Patient seen and examined independently. I am in agreement with the assessment and plan as outlined by our Urologic Surgery Department Physician Patch WorkerConnie. Will arrange for outpatient cystoscopy. Qualifiers: Hematuria type: gross Qualified Code(s): R31.0 - Gross hematuria Exam Initial Vital Signs Temp Pulse Resp BP Pulse Ox 98.2 F 111 16 109/72 93 03/07/19 14:07 03/07/19 14:07 03/07/19 14:07 03/07/19 14:07 03/07/19 14:07 Urology Results - Labs 03/08/19 08:19 03/08/19 08:19 Abnormal lab results RBC 5.08 M/mcL (3.82-4.97) H 03/07/19 14:55 Hgb 15.8 g/dL (11.5-15.4) H 03/07/19 14:55 Hct 48.5 % (35.3-44.9) H 03/07/19 14:55 MPV 9.3 fL (9.4-12.4) L 03/08/19 08:19 1.4 K/mcL (0.0-1.3) H 03/07/19 14:55 APTT 39.9 Seconds (26.0-36.0) H 03/08/19 08:19 Potassium 3.1 mEq/L (3.5-5.1) L 03/07/19 14:55 Chloride 110 mEq/L (98-107) H 03/08/19 08:19 2.19 mg/dL (0.60-1.20) H 03/08/19 08:19 Est GFR ( Amer) 28 (> 60) L 03/08/19 08:19 Est GFR (Non-Af Amer) 23 (> 60) L 03/08/19 08:19 Glucose 109 mg/dL (70-105) H 03/07/19 14:55 Phosphorus 4.9 mg/dL (2.7-4.5) H 03/08/19 08:19 115 Units/L (34-104) H 03/08/19 08:19 22 Units/L (30-223) L 03/07/19 14:55 5.3 g/dL (6.4-8.9) L 03/08/19 08:19 3.1 g/dL (3.5-5.7) L 03/08/19 08:19 2.2 g/dL (2.4-3.5) L 03/08/19 08:19 Triglycerides 156 mg/dL (< 150) H 03/08/19 08:19 Cholesterol 213 mg/dL (< 200) H 03/08/19 08:19 LDL Cholesterol, Calc 148 mg/dL (0-99) H 03/08/19 08:19 VLDL Cholesterol, Calc 31 mg/dL (< 31) H 03/08/19 08:19 34 mg/dL (40-59) L 03/08/19 08:19 6.3 (0-4.9) H 03/08/19 08:19 7 Units/L (11-82) L 03/07/19 14:55 [place] (Yellow) A 03/07/19 23:38 Cloudy (Clear) A 03/07/19 15:21 Moderate (Negative) H 03/07/19 23:38 Positive (Negative) A 03/07/19 23:38 15-30 per hpf (0-3) H 03/07/19 23:38 5-15 per hpf (0-3) H 03/07/19 15:21 Many per hpf (None Seen) H 03/07/19 15:21 Ur Culture Indicated? YES (NO) A 03/07/19 23:38 Protein/Creatinin Ratio 0.28 mg/mg (0.00-0.20) H 03/07/19 23:38 Positive ng/mL (Xvuggo=201) H 03/07/19 15:21 Ur Buprenorphine Scrn Positive ng/mL (Cutoff=5) H 03/07/19 15:21 Hep Bs Antibody 3.48 mIU/mL (10.00-) L 03/07/19 18:45 Diabetes panel 03/07/19 03/08/19 Range/Units 14:55 08:19 Sodium 140 143 (136-145) mEq/L Potassium 3.1 L 4.1 D (3.5-5.1) mEq/L Chloride 104 110 H (98-107) mEq/L Carbon Dioxide 24 25 (23-29) mEq/L BUN 18 18 (6-20) mg/dL Creatinine 1.79 H 2.19 H (0.60-1.20) mg/dL Glucose 109 H 79 (70-105) mg/dL Calcium 9.3 8.6 (8.6-10.3) mg/dL AST 17 16 (13-39) Units/L ALT 9 7 (7-52) Units/L Alkaline Phosphatase 141 H 115 H (34-104) Units/L Albumin 3.8 3.1 L (3.5-5.7) g/dL Triglycerides 156 H (< 150) mg/dL HDL Cholesterol 34 L (40-59) mg/dL Calcium panel 03/07/19 03/08/19 Range/Units 14:55 08:19 Calcium 9.3 8.6 (8.6-10.3) mg/dL Phosphorus 4.9 H (2.7-4.5) mg/dL Albumin 3.8 3.1 L (3.5-5.7) g/dL Pituitary panel 03/07/19 03/08/19 Range/Units 14:55 08:19 Sodium 140 143 (136-145) mEq/L Potassium 3.1 L 4.1 D (3.5-5.1) mEq/L Chloride 104 110 H (98-107) mEq/L Carbon Dioxide 24 25 (23-29) mEq/L BUN 18 18 (6-20) mg/dL Creatinine 1.79 H 2.19 H (0.60-1.20) mg/dL Glucose 109 H 79 (70-105) mg/dL Calcium 9.3 8.6 (8.6-10.3) mg/dL Adrenal panel 03/07/19 03/08/19 Range/Units 14:55 08:19 Sodium 140 143 (136-145) mEq/L Potassium 3.1 L 4.1 D (3.5-5.1) mEq/L Chloride 104 110 H (98-107) mEq/L Carbon Dioxide 24 25 (23-29) mEq/L BUN 18 18 (6-20) mg/dL Creatinine 1.79 H 2.19 H (0.60-1.20) mg/dL Glucose 109 H 79 (70-105) mg/dL Calcium 9.3 8.6 (8.6-10.3) mg/dL Total Bilirubin 0.3 0.5 (0.3-1.0) mg/dL AST 17 16 (13-39) Units/L ALT 9 7 (7-52) Units/L Alkaline Phosphatase 141 H 115 H (34-104) Units/L Albumin 3.8 3.1 L (3.5-5.7) g/dL All other labs normal.
--- NOTE | 2019-03-08 11:09 | Internal Med Progress Note ---
Hospitalist Progress Note - Encounter Date of Encounter: 03/08/19 Time of Encounter: 08:00 - Subjective Interval History: Patient was seen and examined at bedside. Denies any diarrhea has had no bowel movements overnight. Continues to complain of suprapubic abdominal pain. Hematuria has resolved. She does report that she did take AZo last time was >3 days ago. She only was taking Keflex and Zofran for the past few days. She denies nausea or vomiting. All questions answered. Discussed that we will adjust medication to control her pain better. - Exam Vitals: Temp Pulse Resp BP Pulse Ox 98.1 F 81 18 125/64 94 03/08/19 10:52 03/08/19 10:52 03/08/19 10:52 03/08/19 10:52 03/08/19 10:52 Exam: General: Patient is alert, oriented, no acute distress, Head: atraumatic, normocephalic, Eye: normal appearance, PERRL, no scleral icterus, no conjunctival injection ENT: mucous membranes moist, normal external ear exam Neck: normal inspection, trachea midline, full ROM, no carotid bruits Chest: normal inspection, symmetric chest rise Respiratory: Good respiratory effort. Bilateral breath sounds are clear without wheezing, crackles, or rhonchi. Cardiovascular: Regular rate and rhythm. s1 and s2 No clicks, rubs, gallops, or murmors. Abdomen: Bowel sounds present normoactive x-4 quadrants. Mildly tender in the suprapubic region, no CVA tenderness, no rebound. musculoskeletal: Spontaneously moving all extremities. no edema, no calf tenderness Skin: warm, dry, intact. Neuro: Alert and oriented x3 no focal deficit Psych: Patient's affect is normal Frazier catheter in place with yellow urine ( had hematuria - Assessment and Plan (1) Colitis Current Visit: Yes Status: Acute Assessment and Plan: colitis, enetritis vs ileus stool panel pendingshe has no diarrhea so we will consider discontinuing. LDH 200 lactic Acid- 1 cipro and flagyl NPO IVF bowel rest Monitor and correct electrolytes pain control repeat KUB today will consider surgery consult if ileus has worsened Ct A/p IMPRESSION: Mild circumferential wall thickening within the proximal 2/3 of the colon-new over the past 3 days. Mild infectious or inflammatory colitis might be considered clinically. Few mild to moderately distended loops of proximal small bowel within the left upper quadrant with some air-fluid level but no wall thickening. This could represent nonobstructive ileus or enteritis. (2) PRESTON (acute kidney injury) Current Visit: Yes Status: Acute Assessment and Plan: ? secondary to urinary retention S/P frazier placement 3 days ago in the ED vs medication induced vs glomerulonephritis vs doubt HUS (has evidence of colitis but no diarrhea) has hematuria - Ct A/p without evidence of stone or hydronephrosis - hematuria improved with CBI continue with Iv hydration check urine casts, urine eosinophils - pending methanol, ethelyne glycol - pending ANCA, MARY, hepatitis panel, antistreptolysin, complements, urine cytology - p ending strict i/O continue to monitor renal functions avoid nephrotoxic medications urology and nephrology consulted will follow recommendations (3) Hematuria Current Visit: Yes Status: Acute Assessment and Plan: management as above Avoid NSAIDS, anticoagulation and antiplatelets (4) Urinary retention Current Visit: Yes Status: Acute Assessment and Plan: management as above (5) Urinary tract infection Current Visit: Yes Status: Acute Assessment and Plan: on ciprofloxacin urine cx - gram negative coleman from 3 days ago follow urine cx (6) Anxiety Current Visit: Yes Status: Acute Assessment and Plan: continue home medications once verified (7) Opioid use disorder Current Visit: Yes Status: Acute Assessment and Plan: on buprenorphine as OP- currently on hold as she has abdominal pain from colitis/ileus- pharmacy has verified dose (8) DVT prophylaxis Current Visit: Yes Status: Acute Assessment and Plan: Scds (9) Hypokalemia Current Visit: Yes Status: Acute Assessment and Plan: replaced and resolved - Time Spent with Patient Total time spent is greater than 50% in coordination of care (as documented) at patient's floor/unit and/or counseling patient: 25 - 35 minutes Plan of Care Discussed with: patient Internal Medicine: Result - Labs CBC & Chem 7: 03/08/19 08:19 03/08/19 08:19 Labs: Short CBC 03/07/19 03/08/19 Range/Units 14:55 08:19 WBC 10.1 7.3 (4.3-11.1) K/mcL Hgb 15.8 H 13.1 D (11.5-15.4) g/dL Hct 48.5 H 40.5 (35.3-44.9) % Plt Count 331 258 (140-400) K/mcL Neutrophils # 6.8 3.8 (1.6-8.9) K/mcL BMP 03/07/19 03/08/19 14:55 08:19 Sodium 140 143 Potassium 3.1 L 4.1 D Chloride 104 110 H Carbon Dioxide 24 25 BUN 18 18 Creatinine 1.79 H 2.19 H Glucose 109 H 79 Calcium 9.3 8.6 Liver Function 03/07/19 03/08/19 Range/Units 14:55 08:19 Total Bilirubin 0.3 0.5 (0.3-1.0) mg/dL Direct Bilirubin 0.1 (0.0-0.2) mg/dL AST 17 16 (13-39) Units/L ALT 9 7 (7-52) Units/L Alkaline Phosphatase 141 H 115 H (34-104) Units/L Albumin 3.8 3.1 L (3.5-5.7) g/dL Urine 03/07/19 03/07/19 Range/Units 15:21 23:38 Urine Color [place] A [place] A (Yellow) Urine Clarity Cloudy A Clear (Clear) Urine pH TNP 6.[address] TNP 1.013 Urine Protein TNP Negative Urine Glucose (UA) TNP Normal - ABG Interpretation ABG results: PT/INR, D-dimer PT 11.1 Seconds (9.4-12.1) 03/08/19 08:19 - Impressions Impressions Abdomen/Pelvis CT 03/07/19 14:41 IMPRESSION: Mild circumferential wall thickening within the proximal 2/3 of the colon-new over the past 3 days. Mild infectious or inflammatory colitis might be considered clinically. Few mild to moderately distended loops of proximal small bowel within the left upper quadrant with some air-fluid level but no wall thickening. This could represent nonobstructive ileus or enteritis. D/ / Ac Santiago MD / Ac Santiago MD Interpreting Provider: Ac Santiago MD Consult Discharge Plan - Plan Referrals: Tyesha Yeh, QUILL LAYER [Primary Care Provider] - (3) Hematuria Qualifiers: Hematuria type: gross Qualified Code(s): R31.0 - Gross hematuria (5) Urinary tract infection Qualifiers: Urinary tract infection type: acute cystitis Hematuria presence: with hematuria Qualified Code(s): N30.01 - Acute cystitis with hematuria
--- NOTE | 2019-03-08 11:15 | Nephrology Consult Note ---
Date of Encounter: 03/08/19 Time of Encounter: 08:30 Assessment and Plan (1) PRESTON (acute kidney injury) Current Visit: Yes Status: Acute Nonoliguric acute kidney injury with a differential diagnosis that may include prerenal, post renal (appreciate urology workup), or potentially intra-renal. I recommend checking serologies to screen for glomerulonephritis. In the meantime she should follow a renal protective and conservative strategy by avoiding ne phrotoxic agents, tracking strict I's and O's and daily weights, renal dosing of medications, renal diet, and etc. Hypokalemia: Improved. Will monitor. [place] colored urine/gross hematuria: This could be due to the hematuria itself or perhaps a false finding, or perhaps related to Azo [id number], versus other. See above workup recommended for potential nephritis. I recommend volume expansion with continued IV fluids. She will not need urgent hemodialysis today, but she will need continued frequent laboratory monitoring to assess her renal function. Thank you for consulting the [place] [facility] on this very interesting patient who required a high degree of evaluation and management and medical decision making. (2) Hematuria Current Visit: Yes Status: Acute See above Qualifiers: Hematuria type: gross Qualified Code(s): R31.0 - Gross hematuria (3) Urinary retention Current Visit: Yes Status: Acute See above (4) Hyperlipidemia Current Visit: Yes Status: Acute CK was not overtly elevated. Statin as per primary Qualifiers: Hyperlipidemia type: unspecified Qualified Code(s): E78.5 - Hyperlipidemia, unspecified (5) [place]-colored urine Current Visit: Yes Status: Acute See above (6) Hypokalemia Current Visit: No Status: Resolved History of Present Illness - Reason for Consult Consult date: 03/07/19 Acute Kidney Injury Requesting physician: Xenia Sharma - Chief Complaint PRESTON with gross hematuria - History of Present Illness The patient is a very pleasant 53-year-old female who presented with chronic pelvic pain, visible hematuria and findings of elevated creatinine. She said she was recently in the ER and hospitalized. Nephrology was consulted because of the elevated creatinine. She did not affirm taking misv-xfg-vsifcal NSAIDs frequently, though does occasionally take Advil. She did not report recent vomiting or diarrhea but did report having some mild nausea with her symptoms and onset of approximately 2-3 days ago. She did not affirm fevers or chills, recent travel, or IV contrast enhanced procedures at other hospitals. She said she has never seen a professional services consultant in the past. She talked about her pets, and she has one cat. She did not affirm having any visible hemoptysis or prior hepatitis or LE rash. Family history: She did not affirm having any relatives with a history of end-stage renal disease. Past Med Surg Social Fam HX - Past Medical History Medical history: arthritis, asthma, GERD, GI bleed, migraine Additional medical history: OPIOD ADDICTION Psychiatric history: anxiety, depression, other - Past Surgical History Surgical History: cholecystectomy, herniorrhaphy, knee replacement, other Additional surgical history: RIGHT KNEE SURGERY FOR TORN MINISCUS - Social History Smoking Status: Current every day smoker Smokeless Tobacco Status: No Alcohol use: none Drug use: none - Family History Mother Adopted: No Family Member Ethnicity: Non- Living Status: Still Living Hx Family Cardiac Disorders: Yes (HTN) Hx Family Respiratory Disorders: No Hx Family Cancer: Yes (grandfather unknown) Hx Family GI Disorders: No Hx Family Genitourinary Disorders: No Hx Family Endocrine Disorder: Yes (DM) Hx Family Musculoskeletal Disorders: No Hx Family Neuromuscular Disorders: No Hx Family Neurologic Disorders: No Hx Family HEENT Disorders: No Hx Family Autoimmune Disorders: No Hx Family Reproductive Disorders: No Hx Family Psychosocial Disorders: No Hx Family Medical Disorders: No Medications and Allergies Benztropine [Cogentin] 1 mg PO HS 02/09/16 [History] Gabapentin [Neurontin] 800 mg PO QID 02/09/16 [History] Pantoprazole Sodium [Protonix] 40 mg PO DAILY 02/09/16 [History] Paroxetine [Paxil] 20 mg PO DAILY 02/09/16 [History] Quetiapine Fumarate [Seroquel] 600 mg PO HS 02/09/16 [History] cloNIDine HCl [CloNIDine HCl] 0.1 mg PO DAILY 02/09/16 [History] Albuterol Sulfate [Proair Hfa] 2 puff IH Q6H PRN 11/29/16 [History] Aspirin [Lo-Dose Aspirin EC] 81 mg PO DAILY 12/13/17 [History] Buprenorphine HCl/Naloxone HCl [Zubsolv 8.6-2.1 mg Tablet Sl] 2 each SL DAILY 06/05/18 [History] Ondansetron ODT [Zofran ODT] 8 mg SL Q8HR 03/08/19 [History] Allergy/AdvReac Type Severity Reaction Status Date / Time nalbuphine [From Nubain] Allergy Severe Difficulty Verified 12/13/18 15:18 Breathing Amoxicillin Allergy Hives Verified 12/13/18 15:18 butorphanol [From Stadol] Allergy Difficulty Verified 12/13/18 15:18 Breathing Hyoscyamine [From Levsin] Allergy Difficulty Verified 12/13/18 15:18 Breathing ibuprofen Allergy Difficulty Verified 12/13/18 15:18 Breathing ketorolac [From Toradol] Allergy Difficulty Verified 12/13/18 15:18 Breathing lamotrigine [From Lamictal] Allergy Difficulty Verified 12/13/18 15:18 Breathing meperidine [From Demerol] Allergy Difficulty Verified 12/13/18 15:18 Breathing Review of Systems All Systems: reviewed and no additional remarkable complaints except as stated Exam - Vital Signs Vital signs: Initial Vital Signs Temp Pulse Resp BP Pulse Ox 98.2 F 111 16 109/72 93 03/07/19 14:07 03/07/19 14:07 03/07/19 14:07 03/07/19 14:07 03/07/19 14:07 Vital Signs - Last 8 Hours Temp Pulse Resp BP Pulse Ox 03/08/19 10:52 98.1 F 81 18 125/64 94 03/08/19 10:12 16 93 03/08/19 07:02 97.8 F 65 18 126/66 95 03/08/19 04:46 97.8 F 68 18 137/83 92 Intake and Output 03/07/19 03/08/19 03/08/19 23:59 07:59 15:59 Intake Total 50 / 50 1150 / 1450 300 / 1450 Output Total 650 / 650 1325 / 1425 100 / 1425 Balance -600 / -600 -175 / 25 200 / 25 Intake: IV Fluids 50 / 50 1150 / 1450 300 / 1450 0.9 % Sodium Chloride 1,000 ML 1000 / 1000 @ 100 mls/hr IVC .Q10H [facility] Rx#: [id number] Ofirmev 1,000 mg/100 ml 500 mg 50 / 50 50 / 50 In 50 ml @ 200 mls/hr IVPB ONCE ONE Rx#:[id number] Cipro Premix 400 MG/200 ML 400 200 / 200 mg In 200 ml @ 200 mls/hr IVPB Q12HR [facility] Rx#:[id number] Flagyl Premix 500 MG/100 ML 500 100 / 200 100 / 200 mg In 100 ml @ 100 mls/hr IVPB Q8HR [facility] Rx#:[id number] Oral 0 / 0 0 / 0 Output: Urine 650 / 650 1325 / 1425 100 / 1425 Other: Intake, CBI Fluid 3,000 3,000 2,100 Output, CBI Fluid 3,650 2,800 2,200 Weight 72.6 kg 72.8 kg Blood Glucose* 84 Patient Weight 03/08/19 23:59 Weight 72.8 kg - General Appearance General appearance: well-developed, well-nourished, appears started age EENT: ATNC, PERRL, mucous membranes moist Neck: no JVD, supple Respiratory: clear Cardiology: no murmurs, no edema, regular rate, regular rhythm, normal S1, normal S2 Gastrointestinal: normoactive bowel sounds, tenderness (mid epigastric) Integumentary: no rash, warm and dry Neurologic: no focal deficit, no asterixis, alert and oriented x3 Musculoskeletal: no deformities, no erythema, no cyanosis Psychiatric: mood/affect appropriate, cooperative Results - Lab Results 03/08/19 08:19 03/08/19 08:19 Most recent lab results 03/07/19 03/08/19 23:38 08:19 Calcium 8.6 Phosphorus 4.9 H Magnesium 1.8 Urine Creatinine 40 Urine Total Protein 11 Consult Discharge Plan - Plan Referrals: Tyesha Yeh MANAGER BASKETBALL [Primary Care Provider] -
--- NOTE | 2019-03-08 14:00 | Electrocardiograph Report ---
[place] [facility] Test Date: 2019-03-07 Pat Name: Jordyn Boyce Department: EXAM6 Room: 32 Gender: F Direct Care Staffer: : 1965 Requested By: Eric Wilkins Order Number: [id number] Reading MD: Michael Wilhelm Measurements Intervals Rebuck Rate: 78 P: 60 DE: 169 QRS: 1 QRSD: 86 T: 34 QT: 398 QTc: 454 Interpretive Statements Sinus rhythm Electronically Signed On 03-08-2019 13:58:24 EDT by Michael Wilhelm
[2019-03-08] MEDS ORDERED: *HR* Belladonna Alkaloids/Opium 30 MG RECTAL SUPPOSITORY RC PRN (14:59)
[2019-03-09] MEDS: MetroNIDAZOLE 500 MG/100 ML 500 MG/100 ML BAG IVPB SCH ×2 (00:02→08:49)
[2019-03-09 06:46] LABS: Hematocrit 39.6 % (35.3-44.9); Hemoglobin 12.6 g/dL (11.5-15.4); Mean Corpuscular HGB Conc 31.8 g/dL (31.6-35.5); Mean Corpuscular Hemoglobin 31.9 pg (28.0-33.3); Mean Corpuscular Volume 100.3 fL (83.0-100.0); Mean Platelet Volume 9.4 fL (9.4-12.4); Platelet Count 280 K/mcL (140-400); Red Blood Count 3.95 M/mcL (3.82-4.97); Red Cell Distribution Width 13.3 % (11.5-14.5); White Blood Count 7.3 K/mcL (4.3-11.1)
[2019-03-09 07:04] LABS: Calcium 8.4 mg/dL (8.6-10.3); Potassium 3.4 mEq/L (3.5-5.1)
[2019-03-09] MEDS: Nicotine 14 MG PATCH.TD24 TD SCH (08:46)
[2019-03-09] MEDS: 0.9 % Sodium Chloride 1,000 ML IVC SCH ×3 (08:47→18:32)
--- NOTE | 2019-03-09 11:59 | Nephrology Progress Note ---
Date of Encounter: 03/09/19 Time of Encounter: 09:35 - Assessment and Plan (1) PRESTON (acute kidney injury) Current Visit: Yes Status: Acute Improving PRESTON that appears to be most likely pre-renal. In the meantime she should follow a renal protective and conservative strategy by avoiding nephrotoxic agents, tracking strict I's and O's and daily weights, r enal dosing of medications, renal diet, and etc. Hypokalemia: Improved. Will monitor. Okay to discharge from a Nephro perspective, and I'd be happy to see for Nephrology Hospital follow up (I also recommend checking a BMP in about 1 week after discharge). Thank you. (2) Hematuria Current Visit: Yes Status: Acute See my original consult note Qualifiers: Hematuria type: gross Qualified Code(s): R31.0 - Gross hematuria (3) Urinary retention Current Visit: Yes Status: Acute As per primary/uro (4) Hyperlipidemia Current Visit: Yes Status: Acute CK was not overtly elevated. Statin as per primary Qualifiers: Hyperlipidemia type: unspecified Qualified Code(s): E78.5 - Hyperlipidemia, unspecified (5) [place]-colored urine Current Visit: Yes Status: Acute See my original consult note (6) Hypokalemia Current Visit: No Status: Resolved Slowly improving. Replace as needed. Subjective Principal diagnosis: PRESTON Interval history: The patient was seen and examined in her 2A room, and she reported feeling significantly better without nausea, vomiting, or diarrhea. She said that her abdominal pain and belly upset is slowly improving. She did not affirm having a ny more visible hematuria. Objective - Vital Signs Vital signs: Vital Signs Temp Pulse Resp BP Pulse Ox 03/09/19 11:40 98.7 F 71 17 148/82 93 03/09/19 07:10 98.3 F 75 17 132/80 95 03/09/19 03:42 98.0 F 72 17 141/75 97 03/09/19 00:10 98.3 F 70 17 135/72 96 03/08/19 20:35 91 03/08/19 19:11 98.4 F 87 17 136/72 91 03/08/19 15:19 98.3 F 71 18 136/76 93 Intake and Output 03/08/19 03/09/19 03/09/19 23:59 07:59 15:59 Intake Total 2050 / 3500 540 / 1660 1120 / 1660 Output Total 1450 / 2875 550 / 1250 700 / 1250 Balance 600 / 625 -10 / 410 420 / 410 Intake: IV Fluids 2050 / 3500 300 / 1300 1000 / 1300 0.9 % Sodium Chloride 1,000 ML 1950 / 2950 1000 / 1000 @ 125 mls/hr IVC .Q8H [facility] Rx#: [id number] Cipro Premix 400 MG/200 ML 400 200 / 200 mg In 200 ml @ 200 mls/hr IVPB Q12H [facility] Rx#:[id number] Flagyl Premix 500 MG/100 ML 500 100 / 300 100 / 100 mg In 100 ml @ 100 mls/hr IVPB Q8HR [facility] Rx#:[id number] Oral 240 / 360 120 / 360 Output: Catheter 1450 / 1450 550 / 1250 700 / 1250 Other: Meal Breakfast Percent of Meal Consumed 80% Weight 75 kg Patient Weight 03/09/19 23:59 Weight 75 kg - General Appearance Exam: General appearance: well-developed, well-nourished, appears started age EENT: ATNC, PERRL, mucous membranes moist Neck: no JVD, supple Respiratory: clear Cardiology: no murmurs, no edema, regular rate, regular rhythm, normal S1, normal S2 Gastrointestinal: normoactive bowel sounds, soft Integumentary: no rash, warm and dry Neurologic: no focal deficit, no asterixis, alert and oriented x3 Musculoskeletal: no deformities, no erythema, no cyanosis Psychiatric: mood/affect appropriate, cooperative - Lab 03/09/19 04:58 03/09/19 04:58 Most recent lab results 03/09/19 04:58 Calcium 8.4 L Consult Discharge Plan - Plan Referrals: Tyesha Yeh, INPATIENT NURSING AIDE [Primary Care Provider] -
[2019-03-09] MEDS ORDERED: Acetaminophen IV 1,000 MG/100 ML INFUS..BTL IVPB ONE (15:57)
[2019-03-09] MEDS: metroNIDAZOLE 500 MG TABLET PO SCH ×2 (16:01→20:13)
--- NOTE | 2019-03-09 20:26 | Internal Med Progress Note ---
Hospitalist Progress Note - Encounter Date of Encounter: 03/09/19 Time of Encounter: 10:30 - Subjective Interval History: Ms Boyce denies any episode of melena or hematochezia. She stated her last colonoscopy was over 5 years ago. She continues to complain of suprapubic pain refractory to scheduled narcotic analgesics. She is requesting IV narcotics she stated last Suboxone dose was over a week ago - Exam Vitals: Temp Pulse Resp BP Pulse Ox 98.3 F 74 15 124/79 93 03/09/19 18:52 03/09/19 18:52 03/09/19 18:52 03/09/19 18:52 03/09/19 18:52 Exam: GENERAL: NAD, A&O x3, pleasant and conversant SKIN: No skin lesions or rashes, non-jaundiced EYES: EOMI, PERRLA, no sclera icterus HENT: Head atraumatic, no facial asymmetry, frontal and maxillary sinus non- tender, normal hearing, oropharynx and mucosa moist and without any exudates NECK: No cervical lymphadenopathy, trachea midline, thyroid is palpable does not appear enlarged LUNGS: vesicular breath sounds, clear to auscultation, no wheeze, rhonchi, rales or crackles. Non labored respirations HEART: Normal rate and rhythm, no murmurs or rubs ABDOMEN: soft, diffusely tender but no rebound or guarding, non-distended, bowel sounds x 4 normoactive EXTRMITIES: No LE asymmetry, No LE edema, pedal pulses 1+ and radial pulses 2 + and equal bilaterally NEURO: Speech and comprehension appears intact. PSYCH: Cooperative, non- anxious or irritable, mood and affect is appropriate - Assessment and Plan (1) Colitis Current Visit: Yes Status: Acute Assessment and Plan: this was evidenced on CT patient does have some diffuse abdominal tenderness otherwise she has no other symptoms of colitis with regard to diarrhea illness or associated leukocytosis. Her last colonoscopy was over 5 years ago will continue to monitor and clinically correlate. One dose of IV tylenol ordered. continue metronidazole (2) Urinary tract infection Current Visit: Yes Status: Acute Assessment and Plan: urine culture was negative she was treated with ciprofloxacin urine cx - gram negative coleman from 3 days ago follow urine cx (3) Urinary retention Current Visit: Yes Status: Acute Assessment and Plan: Likely resolved urine output is adequate (4) PRESTON (acute kidney injury) Current Visit: Yes Status: Acute Assessment and Plan: Improving firmware developer following recommend BMP in 1 week upon discharge (5) Hypokalemia Current Visit: Yes Status: Acute Assessment and Plan: due to poor intake was supplemented orally, will check BMP in the morning (6) Anxiety Current Visit: Yes Status: Acute Assessment and Plan: continue home medications (7) DVT prophylaxis Current Visit: Yes Status: Acute (8) Hematuria Current Visit: Yes Status: Acute Assessment and Plan: resolved secondary to UTI (9) Opioid use disorder Current Visit: Yes Status: Acute Assessment and Plan: on buprenorphine as OP- currently on hold as she has abdominal pain from colitis/ileus- pharmacy has verified dose - Time Spent with Patient Total time spent is greater than 50% in coordination of care (as documented) at patient's floor/unit and/or counseling patient: Internal Medicine: Result - Labs CBC & Chem 7: 03/09/19 04:58 03/09/19 04:58 Labs: Short CBC 03/09/19 Range/Units 04:58 WBC 7.3 (4.3-11.1) K/mcL Hgb 12.6 (11.5-15.4) g/dL Hct 39.6 (35.3-44.9) % Plt Count 280 (140-400) K/mcL BMP 03/09/19 04:58 Sodium 142 Potassium 3.4 L Chloride 109 H Carbon Dioxide 24 BUN 14 Creatinine 1.49 H Glucose 86 Calcium 8.4 L - ABG Interpretation ABG results: PT/INR, D-dimer PT 11.1 Seconds (9.4-12.1) 03/08/19 08:19 Consult Discharge Plan - Plan Referrals: Tyesha Yeh, FUR DESIGNER [Primary Care Provider] - (2) Urinary tract infection Qualifiers: Urinary tract infection type: acute cystitis Hematuria presence: with hematuria Qualified Code(s): N30.01 - Acute cystitis with hematuria (8) Hematuria Qualifiers: Hematuria type: gross Qualified Code(s): R31.0 - Gross hematuria
[2019-03-10] MEDS: 0.9 % Sodium Chloride 1,000 ML IVC SCH ×2 (02:38→10:18)
[2019-03-10 07:53] LABS: Anti-Streptolysin O Antibody <55 IU/mL (0-330)
[2019-03-10 08:01] LABS: Myeloperoxidase Ab 0 AU/mL (0-19); Serine Protease-3 Antibody 0 AU/mL (0-19)
[2019-03-10 08:24] LABS: Basophils # 0.1 K/mcL (0.0-0.2); Eosinophils # 0.3 K/mcL (0.0-0.6); Eosinophils % 4.3 %; Hemoglobin 12.2 g/dL (11.5-15.4); Immature Granulocytes % 0.3 % (0-4); Lymphocytes % 31.3 %; Mean Corpuscular HGB Conc 32.1 g/dL (31.6-35.5); Mean Corpuscular Hemoglobin 31.5 pg (28.0-33.3); Mean Corpuscular Volume 98.2 fL (83.0-100.0); Mean Platelet Volume 9.9 fL (9.4-12.4); Monocytes # 0.6 K/mcL (0.0-1.3); Monocytes % 9.2 %; Neutrophils # 3.4 K/mcL (1.6-8.9); Platelet Count 234 K/mcL (140-400); Red Blood Count 3.87 M/mcL (3.82-4.97); Red Cell Distribution Width 13.2 % (11.5-14.5); Segmented Neutrophils % 53.9 %; White Blood Count 6.3 K/mcL (4.3-11.1)
[2019-03-10] MEDS: Nicotine 14 MG PATCH.TD24 TD SCH (09:22)
[2019-03-10] MEDS: metroNIDAZOLE 500 MG TABLET PO SCH (09:24)
[2019-03-10 10:15] LABS: BUN/Creatinine Ratio 9 (6-26); Blood Urea Nitrogen 8 mg/dL (6-20); Calcium 8.2 mg/dL (8.6-10.3); Carbon Dioxide 20 mEq/L (23-29); Chloride 110 mEq/L (98-107); Glucose 81 mg/dL (70-105); Osmolality,Calculated 295 (280-300); Potassium 3.3 mEq/L (3.5-5.1); Sodium 144 mEq/L (136-145); eGFR For African Americans > 60 (> 60); eGFR For Non-African Americans > 60 (> 60)
--- NOTE | 2019-03-10 10:26 | Urology Progress Note ---
Date of Encounter: 03/10/19 Time of Encounter: 10:24 - Assessment and Plan (1) Urinary retention Current Visit: Yes Status: Acute Assessment and plan: She reports voiding well status post Davila catheter removal. Plan: No further evaluation or interventions indicated. (2) Hematuria Current Visit: Yes Status: Acute Assessment and plan: Further gross hematuria. Plan: Renal ultrasound. Follow-up in my office as an outpatient for cystoscopy. Qualifiers: Hematuria type: gross Qualified Code(s): R31.0 - Gross hematuria Progress Note Subjective: no new complaints Objective Initial Vital Signs Temp Pulse Resp BP Pulse Ox 98.2 F 111 16 109/72 93 03/07/19 14:03/07/19 14:03/07/19 14:03/07/19 14:03/07/19 14:07 - General physical appearance Present: well developed, well nourished - Respiratory Present: normal respiratory effort - Abdomen Present: soft - Musculoskeletal Present: normal posture - Psychiatric Present: oriented to time, oriented to person, oriented to place - Labs 03/10/19 07:40 03/10/19 07:40 Diabetes panel 03/10/19 Range/Units 07:40 Sodium 144 (136-145) mEq/L Potassium 3.3 L (3.5-5.1) mEq/L Chloride 110 H (98-107) mEq/L Carbon Dioxide 20 L (23-29) mEq/L BUN 8 (6-20) mg/dL Creatinine 0.85 (0.60-1.20) mg/dL Glucose 81 (70-105) mg/dL Calcium 8.2 L (8.6-10.3) mg/dL Calcium panel 03/10/19 Range/Units 07:40 Calcium 8.2 L (8.6-10.3) mg/dL Pituitary panel 03/10/19 Range/Units 07:40 Sodium 144 (136-145) mEq/L Potassium 3.3 L (3.5-5.1) mEq/L Chloride 110 H (98-107) mEq/L Carbon Dioxide 20 L (23-29) mEq/L BUN 8 (6-20) mg/dL Creatinine 0.85 (0.60-1.20) mg/dL Glucose 81 (70-105) mg/dL Calcium 8.2 L (8.6-10.3) mg/dL Adrenal panel 03/10/19 Range/Units 07:40 Sodium 144 (136-145) mEq/L Potassium 3.3 L (3.5-5.1) mEq/L Chloride 110 H (98-107) mEq/L Carbon Dioxide 20 L (23-29) mEq/L BUN 8 (6-20) mg/dL Creatinine 0.85 (0.60-1.20) mg/dL Glucose 81 (70-105) mg/dL Calcium 8.2 L (8.6-10.3) mg/dL Consult Discharge Plan - Plan Referrals: Tyesha Yeh, TWISTING MACHINE OPERATOR [Primary Care Provider] -
[2019-03-10 12:07] VITALS: BP 156/75
--- NOTE | 2019-03-10 13:43 | Discharge Summary ---
- NOTES TO OUTPATIENT PROVIDER Notes to Outpatient Provider: Posthospital discharge follow-up, patient needs to follow up with Dr. Anaya the urologist for outpatient cystoscopy. She will also need BMP in 1 week. She was treated for colitis and might need outpatient colonoscopy Orders not resulted at time of discharge: Pending orders 03/07/19 17:44 EKG [ECG 12 lead ECG] [ECG] Stat 03/07/19 18:31 Methanol Stat 03/07/19 18:36 Occult Blood,Stool [BF] Stat 03/07/19 18:45 MARY IgG MORALES rflx IFA Stat 03/10/19 10:23 retroperitoneal ultrasound - limited [US retroperitoneal limited] [US] Routine Date of Encounter: 03/10/19 Time of Encounter: 13:40 - Discharge Diagnosis (1) Hematuria Priority: Primary Status: Acute Assessment and Plan: resolved secondary to UTI, she was seen by both urology she is to follow-up with Dr. Anaya urologist as an outpatient for cystoscopy Qualifiers: Hematuria type: gross Qualified Code(s): R31.0 - Gross hematuria (2) PRESTON (acute kidney injury) Priority: Secondary Status: Acute Assessment and Plan: Resolved serum creatinine has normalized 0.85 today she was seen by associate director (3) Urinary tract infection Priority: Secondary Status: Acute Assessment and Plan: Patient denies any further episodes of dysuria. urine culture was negative she was treated with ciprofloxacin urine cx - gram negative coleman from 3 days ago follow urine cx Qualifiers: Urinary tract infection type: acute cystitis Hematuria presence: with hematuria Qualified Code(s): N30.01 - Acute cystitis with hematuria (4) Colitis Priority: Secondary Status: Acute Assessment and Plan: Patient was never symptomatic. Would recommend outpatient follow-up with primary care physician for possible evaluation with colonoscopy. This was evident on CT abd/pelvis on admission. However follow-up KUB was unrevealing. patient does have some diffuse abdominal tenderness otherwise she has no other symptoms of colitis with regard to diarrhea illness or associated leukocytosis. continue metronidazole orally for total 7 days (5) Urinary retention Priority: Secondary Status: Acute Assessment and Plan: Likely resolved urine output is adequate. She is to follow-up as outpatient with urology for possible cystoscopy (6) Hypokalemia Priority: Secondary Status: Acute Assessment and Plan: due to poor intake was supplemented orally, improvement potassium today is 3.3 and respiratory improve as her oral intake improved was supplemented 40MEQ orally (7) Anxiety Priority: Secondary Status: Acute Assessment and Plan: continue home medications (8) DVT prophylaxis Priority: Secondary Status: Acute Assessment and Plan: Scds (9) Opioid use disorder Priority: Secondary Status: Acute Assessment and Plan: She is to follow-up as an outpatient with the [facility] she will not be discharged home on any narcotic analgesic Hospital course: Ms. Boyce is a 53 year old female was hospitalized for hematuria noted to have acute kidney injury and UTI. She was seen by urologist and associate director during his hospital stay. Hematuria resolved with bladder irrigation and she is to follow-up as an outpatient with urologist of the [place] for possible cystoscopy. She was noted during this hospital stay to have colitis evident on admission CT abdomen and pelvis however repeat KUB was unrevealing. She was not symptomatic as per having any diarrheal-type illness. Discharge discussed with: patient, family, nurse - Time Spent with Patient Total time spent providing and/or coordinating discharge services:32 minutes - Discharge Medications Prescriptions: New Ciprofloxacin [Cipro] 500 mg PO BID 5 Days tablet metroNIDAZOLE [Flagyl] 500 mg PO TID 5 Days tablet Nicotine Patch [Nicoderm] 14 mg TD DAILY 30 Days patch.[id number] Continued cloNIDine HCl [CloNIDine HCl] 0.1 mg PO DAILY Gabapentin [Neurontin] 800 mg PO QID Paroxetine [Paxil] 20 mg PO DAILY Pantoprazole Sodium [Protonix] 40 mg PO DAILY Quetiapine Fumarate [Seroquel] 600 mg PO HS Benztropine [Cogentin] 1 mg PO HS Albuterol Sulfate [Proair Hfa] 2 puff IH Q6H PRN PRN Reason: Wheezing Aspirin [Lo-Dose Aspirin EC] 81 mg PO DAILY Buprenorphine HCl/Naloxone HCl [Zubsolv 8.6-2.1 mg Tablet Sl] 2 each SL DAILY No Action Ondansetron ODT [Zofran ODT] 8 mg SL Q8HR PRN PRN Reason: Nausea Home Medications: Benztropine [Cogentin] 1 mg PO HS 02/09/16 [History] Gabapentin [Neurontin] 800 mg PO QID 02/09/16 [History] Pantoprazole Sodium [Protonix] 40 mg PO DAILY 02/09/16 [History] Paroxetine [Paxil] 20 mg PO DAILY 02/09/16 [History] Quetiapine Fumarate [Seroquel] 600 mg PO HS 02/09/16 [History] cloNIDine HCl [CloNIDine HCl] 0.1 mg PO DAILY 02/09/16 [History] Albuterol Sulfate [Proair Hfa] 2 puff IH Q6H PRN 11/29/16 [History] Aspirin [Lo-Dose Aspirin EC] 81 mg PO DAILY 12/13/17 [History] Buprenorphine HCl/Naloxone HCl [Zubsolv 8.6-2.1 mg Tablet Sl] 2 each SL DAILY 06/05/18 [History] Ondansetron ODT [Zofran ODT] 8 mg SL Q8HR PRN 03/08/19 [History] Ciprofloxacin [Cipro] 500 mg PO BID 5 Days tablet 03/10/19 [Rx] Nicotine Patch [Nicoderm] 14 mg TD DAILY 30 Days patch.td24 03/10/19 [Rx] metroNIDAZOLE [Flagyl] 500 mg PO TID 5 Days tablet 03/10/19 [Rx] Allergies/Adverse Reactions: Allergy/AdvReac Type Severity Reaction Status Date / Time nalbuphine [From Nubain] Allergy Severe Difficulty Verified 12/13/18 15:18 Breathing Amoxicillin Allergy Hives Verified 12/13/18 15:18 butorphanol [From Stadol] Allergy Difficulty Verified 12/13/18 15:18 Breathing Hyoscyamine [From Levsin] Allergy Difficulty Verified 12/13/18 15:18 Breathing ibuprofen Allergy Difficulty Verified 12/13/18 15:18 Breathing ketorolac [From Toradol] Allergy Difficulty Verified 12/13/18 15:18 Breathing lamotrigine [From Lamictal] Allergy Difficulty Verified 12/13/18 15:18 Breathing meperidine [From Demerol] Allergy Difficulty Verified 12/13/18 15:18 Breathing Date of admission: 03/09/19 14:02 Primary care physician: Tyesha Yeh CNP Consults: 03/07/19 17:58 Consult to Urology [CONS] Routine Consulting Provider: [facility] Reason for Consult: urnary obstruction s/p frazier in the ED now with worsening creatinine Call Completed: Yes 03/07/19 19:08 Consult to Nephrology [CONS] Routine Consulting Provider: [facility]/ORIMI/YUAN/EBENEZER Reason for Consult: PRESTON Call Completed: Yes 03/07/19 20:43 Consult to Nutrition [CONS] Routine Comment: Consulting Provider: NUTRITION Reason for Dietary Consult: Diet Education Discharging clinician: Rashel Noel Anticipated date of discharge: 03/10/19 - Constitutional Vitals: Temp Pulse Resp BP Pulse Ox 98.6 F 76 17 156/75 95 03/10/19 12:06 03/10/19 12:06 03/10/19 12:06 03/10/19 12:06 03/10/19 12:06 Exam: GENERAL: NAD, A&O x3, pleasant and conversant, her was at the bedside SKIN: No skin lesions or rashes, non-jaundiced EYES: EOMI, PERRLA, no sclera icterus HENT: Head atraumatic, no facial asymmetry, , normal hearing, oropharynx and mucosa moist and without any exudates NECK: No cervical lymphadenopathy, trachea midline, LUNGS: vesicular breath sounds, clear to auscultation, no wheeze, rhonchi, rales or crackles. Non labored respirations HEART: Normal rate and rhythm, no murmurs or rubs ABDOMEN: soft, non-tender, non-distended, bowel sounds x 4 normoactive EXTRMITIES: No LE asymmetry, No LE edema, pedal pulses 1+ and radial pulses 2 + and equal bilaterally NEURO: Speech and comprehension appears intact. PSYCH: Cooperative, non- anxious or irritable, mood and affect is appropriate - Patient Status Disposition: Home, Self-Care Condition: Good Functional capacity at discharge: independent ambulation - Discharge Instructions Follow Up With: Tyesha Yeh, SURGICAL SERVICES ASSISTANT [Primary Care Provider] - - Diet and Activity Activity: resume usual activities as tolerated Diet: low fat, low cholesterol
[2019-03-10 13:58] LABS: ANA IgG by ELISA NONE DETECTED (None Detected)
== END 2019-03-10 15:22 | disposition home or self-care (01) | DRG 683 ==
LOC: EMEROOARM 14:02 → 2ANU 14:02 → SUATTDRO 18:40 → 2ANU 20:06
PROVIDERS: ADMIT Internal Medicine Nephrology; ATTEND Pharmacist

== ENCOUNTER 2021-07-24 10:54 | Inpatient (IN) ==
[2021-07-24 12:37] LABS: Bilirubin,Urine Negative (Negative); Blood,Urine Negative (Negative); Clarity,Urine Clear (Clear); Color,Urine Light-Yellow (Yellow); Glucose,Urine (UA) Normal (Normal); Ketones,Urine Negative (Negative); Leukocyte Esterase,Urine Small (Negative); Mucus,Urine Few per lpf (None-Few); Nitrite,Urine Negative (Negative); PH,Urine 6.5 pH Units (5.0-8.0); Protein,Urine Negative (Neg-Trace); RBC,Urine 0-3 per hpf (0-3); Squamous Epithelial Cell,Urine Moderate per hpf (None-Few); WBC,Urine 15-30 per hpf (0-3)
[2021-07-24] MEDS ORDERED: Aspirin 81 MG TAB.CHEW PO ONE (12:40)
[2021-07-24 12:46] LABS: Amphetamine Screen,Urine Negative ng/mL (Cutoff=1000); Barbiturate Screen,Urine Negative ng/mL (Cutoff=200); Benzodiazepines Screen,Urine Negative ng/mL (Cutoff=200); Cannabinoid Screen,Urine Positive ng/mL (Cutoff = 50); Cocaine Screen,Urine Negative ng/mL (Cutoff= 300); Opiate Screen,Urine Negative ng/mL (Cutoff=300); Phencyclidine Screen,Urine Negative ng/mL (Cutoff=25)
[2021-07-24 13:02] LABS: Hematocrit 42.9 % (35.3-44.9); Hemoglobin 14.1 g/dL (11.5-15.4); Mean Corpuscular HGB Conc 32.9 g/dL (31.6-35.5); Mean Corpuscular Hemoglobin 31.3 pg (28.0-33.3); Mean Corpuscular Volume 95.3 fL (83.0-100.0); Mean Platelet Volume 8.9 fL (9.4-12.4); Monocytes # 0.6 K/mcL (0.0-1.3); Neutrophils # 4.5 K/mcL (1.6-8.9); Platelet Count 327 K/mcL (140-400); Red Cell Distribution Width 14.8 % (11.5-14.5)
[2021-07-24 13:08] LABS: Acetaminophen < 10 mcg/mL (10-20); BUN/Creatinine Ratio 18 (6-26); Blood Urea Nitrogen 11 mg/dL (6-20); Calcium 8.6 mg/dL (8.6-10.3); Carbon Dioxide 26 mEq/L (23-29); Chloride 109 mEq/L (98-107); Chol/HDL Ratio 4.6 (0-4.9); Cholesterol 184 mg/dL (< 200); Ethanol < 10 mg/dL (Less than 10); Glucose 89 mg/dL (70-105); HDL Cholesterol 40 mg/dL (40-59); LDL Cholesterol,Calculated 112 mg/dL (< 100); Osmolality,Calculated 291 (280-300); Potassium 3.9 mEq/L (3.5-5.1); Salicylate < 2.5 mg/dL (15.0-30.0); Sodium 141 mEq/L (136-145); Triglycerides 162 mg/dL (< 150); Troponin I < 0.03 ng/mL (< 0.04); eGFR For African Americans > 60 (> 60); eGFR For Non-African Americans > 60 (> 60)
[2021-07-24 13:19] LABS: Estimated Average Glucose 103 mg/dl; Hemoglobin A1C 5.2 %
[2021-07-24 13:23] LABS: Lymphocytes # 3.9 K/mcL (0.6-4.6); Platelet Estimate Normal (Normal); Reactive Lymphocytes Present (Not Present)
[2021-07-24] MEDS ORDERED: hydrOXYzine pamoate 25 MG CAPSULE PO STA (16:11)
[2021-07-24 17:13] LABS: Influenza A PCR Negative (Negative); Influenza B PCR Negative (Negative); Resp. Syncytial Virus PCR Negative (Negative)
[2021-07-24 17:28] LABS: SARS-CoV-2 by PCR (In House) Negative (Negative)
[2021-07-24] MEDS ORDERED: Haloperidol Lactate 5 MG/ML VIAL IM PRN (17:38)
[2021-07-24] MEDS ORDERED: haloperidoL 5 MG TABLET PO PRN (17:38)
[2021-07-24] MEDS ORDERED: *HR* LORazepam 1 MG TABLET PO PRN (17:38)
[2021-07-24] MEDS ORDERED: *HR* LORazepam 2 MG/ML VIAL IM PRN (17:38)
[2021-07-24] MEDS ORDERED: traZODone 50 MG TABLET PO PRN (17:38)
[2021-07-24] MEDS: Nicotine 21 MG PATCH.TD24 TD SCH (19:04)
[2021-07-24] MEDS: hydrOXYzine pamoate 25 MG CAPSULE PO PRN (20:36)
[2021-07-25] MEDS: hydrOXYzine pamoate 25 MG CAPSULE PO PRN ×3 (06:25→21:20)
[2021-07-25] MEDS: Acetaminophen 325 MG TABLET PO PRN ×2 (06:25→15:49)
[2021-07-25] MEDS: Nicotine 21 MG PATCH.TD24 TD SCH (08:57)
[2021-07-25] MEDS ORDERED: OLANZapine 10 MG TAB.RAPDIS PO SCH (09:00)
[2021-07-25] MEDS ORDERED: QUEtiapine Fumarate 100 MG TABLET PO PRN (10:56)
[2021-07-25] MEDS ORDERED: traZODone 50 MG TABLET PO PRN (11:00)
[2021-07-25] MEDS: QUEtiapine Fumarate 100 MG TABLET PO SCH (12:28)
[2021-07-25] MEDS: tiZANidine 4 MG TABLET PO PRN (15:52)
[2021-07-25] MEDS ORDERED: Nicotine 2 MG GUM BC PRN (18:34)
[2021-07-25] MEDS ORDERED: QUEtiapine Fumarate 100 MG TABLET PO SCH (21:00)
[2021-07-25 21:05] VITALS: O2SAT 95
[2021-07-26] MEDS: QUEtiapine Fumarate 100 MG TABLET PO SCH (08:15)
[2021-07-26] MEDS: tiZANidine 4 MG TABLET PO PRN ×2 (08:18→16:06)
[2021-07-26] MEDS: hydrOXYzine pamoate 25 MG CAPSULE PO PRN ×2 (08:18→13:07)
[2021-07-26] MEDS ORDERED: Nicotine 21 MG PATCH.TD24 TD SCH (09:00)
[2021-07-26 09:01] VITALS: BP 141/69; PULSE 91; TEMP 97.5
[2021-07-26] MEDS ORDERED: traZODone 50 MG TABLET PO SCH (21:00)
== END 2021-07-26 17:20 | disposition home or self-care (01) | DRG 885 ==
LOC: EMEROOARM 10:54 → 1ANU 17:40
PROVIDERS: ADMIT Psychiatry & Neurology Psychiatry; ATTEND Psychiatry & Neurology Psychiatry